=== PATIENT | male | born 1940 | race Caucasian/White ===

== ENCOUNTER 2017-04-04 14:28 | Outpatient (CLI) | payer MEDICARE, BC ==
--- NOTE | 2017-04-05 12:26 | CT Report ---
CT BRAIN WITHOUT CONTRAST: 04/04/2017 CLINICAL INDICATION: Dizziness. TECHNIQUE: Axial CT images of the brain were obtained without intravenous contrast. No previous CT is available for comparison. In accordance with CT protocol optimization, one or more of the following dose reduction techniques w ere utilized for this exam: automated exposure control, adjustment of mA and/or KV based on patient size, or use of iterative reconstructive technique. FINDINGS: The ventricles and sulci demonstrate moderate symmetric enlargement, compatible with atrop hy. Chronic ischemic changes are seen in the periventricular white matter structures. There is no e vidence of acute hemorrhage, mass effect, or midline shift. The basilar cisterns are patent. The vi sualized orbital contents and paranasal sinuses are unremarkable. IMPRESSION: ATROPHY AND CHRONIC ISCHEMIC CHANGES. NO EVIDENCE OF ACUTE HEMORRHAGE OR MASS EFFECT. JOB #: [id number] EXT JOB #:[id number]
--- NOTE | 2017-04-08 08:08 | Ultrasound Report ---
CAROTID DUPLEX: 04/04/2017 CLINICAL INDICATION: Dizziness. TECHNIQUE: Real-time sonographic vascular imaging was performed by the drywall taper helper through the carotid arteries utilizing both color-flow and Doppler spectral analysis. Multiple maintenance representative static images were saved for review. Vessel PSV cm/sec 2D Plaque Estimate % ICA/CCA PSV EDV cm/sec % Stenosis RCCA Prox 89 -- RCCA Dist 69 7 RECA 82 -- RT BULB 35 -- 0.51 9 SHELBY Prox 68 -- 0.99 15 SHELBY Mid 72 -- 1.04 20 SHELBY Dist 44 -- 0.64 14 RVA 62 RVA flow direction: Antegrade. Vessel PSV cm/sec 2D Plaque Estimate % ICA/CCA PSV EDV cm/sec % Stenosis LCCA Prox 91 -- LCCA Dist 60 8 LECA 68 -- LFT BULB 36 -- 0.60 8 LICA Prox 51 -- 0.85 15 LICA Mid 106 -- 1.77 25 LICA Dist 71 -- 1.18 17 LVA 66 LVA flow direction: Antegrade. Velocity criteria are extrapolated from diameter data as defined by the Society of Radiologists in Ultrasound Consensus Conference Radiology 2003; 229; 340-346. Degree of Stenosis % ICA PSV cm/sec Plaque Estimate % ICA/CCA RSV Ratio ICA EDV cm/sec Normal < 125 None < 2.0 < 40 <50 < 125 < 50 < 2.0 < 40 50-69 125 - 130 >/= 50 2.0 - 4.0 40 - 100 >/= 70 but less than near occlusion > 230 >/= 50 > 4.0 > 100 Near occlusion High, low, or undetectable Visible lumen Variable Variable Total occlusion Undetectable No detectable lumen Not applicable Not applicable FINDINGS RIGHT: There is mild plaquing in the right carotid bifurcation, without evidence of a focal hemodynamically significant carotid stenosis. LEFT: There is mild plaquing in the left carotid bifurcation, without evidence of a focal hemodynamically significant carotid stenosis. The vertebral arteries demonstrate antegrade flow bilaterally. IMPRESSION: NO EVIDENCE OF A FOCAL HEMODYNAMICALLY SIGNIFICANT CAROTID STENOSIS. MTDD
== END 2017-04-04 14:29 | disposition home or self-care (01) ==
LOC: DI 14:28
PROVIDERS: ATTEND Family Medicine
DX: R42 Dizziness and giddiness (principal); G31.9 Degenerative disease of nervous system, unspecified; I67.82 Cerebral ischemia
CPT/HCPCS: 70450; 93880

== ENCOUNTER 2017-06-16 15:39 | Emergency (ER) | payer MEDICARE, BC ==
--- NOTE | 2017-06-16 16:12 | ED Physician Documentation ---
History of Present Illness - Stated complaint Stated Complaint: LT FLANK PX/GLF - Chief complaint Chief Complaint: General - History obtained from History obtained from: Patient, Family () - History of Present Illness Timing: Other (Mechanical fall against a oustide step at home a few nights ago hitting left rib on step with persistent left lateral chest pain. Took a percocet (his 's) with help. No other injury, no head or neck injury.) Review of Systems Constitutional: reports: Reviewed and negative Nose: denies: Rhinorrhea / runny nose, Congestion, Foreign Body Cardiac: reports: Chest pain / pressure. denies: Palpitations, Pedal edema, Calf pain Respiratory: denies: Dyspnea, Cough PD PAST MEDICAL HISTORY - Past Medical History Cardiovascular: Hypertension, High cholesterol, Coronary artery disease - Past Surgical History Past Surgical History: Yes General: Cholecystectomy Cardiovascular: Coronary stent - Present Medications Home Medications: Ambulatory Orders Medication Instructions Recorded Confirmed Celecoxib [CeleBREX] 200 mg PO DAILY 08/27/14 06/16/17 Multivitamin [Multivitamins] 1 tab PO DAILY 08/27/14 06/16/17 Rosuvastatin Calcium [Crestor] 10 mg PO DAILY 08/27/14 06/16/17 Testosterone [Androgel] 2.5 mg PO DAILY 08/27/14 06/16/17 Ubidecarenone [Co Q-10] 10 mg PO DAILY 08/27/14 06/16/17 Valsartan [Diovan] 160 mg PO BID 08/27/14 06/16/17 Amlodipine Besylate [Norvasc] 5 mg PO DAILY #30 tablet 03/11/15 06/16/17 Carvedilol 12.5 mg PO DAILY 03/11/15 06/16/17 Isosorbide Mononitrate [Isosorbide 60 mg PO DAILY 03/11/15 06/16/17 Mononitrate ER] Dara 0.5 mg PO DAILY 03/11/15 06/16/17 rOPINIRole [Requip] 0.25 mg PO DAILY 12/18/15 06/16/17 Aspirin EC [Ecotrin] 325 mg PO DAILY 06/16/17 06/16/17 Carvedilol [Coreg] 12.5 mg PO BID 06/16/17 06/16/17 Cholecalciferol [Vitamin D3] 5,000 unit ORAL DAILY 06/16/17 06/16/17 Dutasteride/Tamsulosin HCl 1 each PO DAILY 06/16/17 06/16/17 [Dutasteride-Tamsulosin 0.5-0.4] Nitroglycerin [Nitrostat] 0.4 mg SL Q5MIN PRN 06/16/17 06/16/17 Olmesartan/Hydrochlorothiazide 1 each PO DAILY 06/16/17 06/16/17 [Benicar Hct 20-12.5 mg Tablet] Omega3/Dha/Epa/Fish Oil/Vit D3 1 each PO DAILY 06/16/17 06/16/17 [Fish Oil-Vit D3 Softgel] Oxycodone HCl/Acetaminophen 1 - 2 tab PO Q4H PRN #15 tablet 06/16/17 [Percocet 5-325 mg Tablet] Vitamin B Complex 1 each PO DAILY 06/16/17 06/16/17 oxyCODONE/ACET 5/325 [Percocet 5 1 each PO Q4-6H PRN 06/16/17 06/16/17 mg/325 mg] - Allergies Allergies/Adverse Reactions: Allergies Allergy/AdvReac Type Severity Reaction Status Date / Time No Known Drug Allergies Allergy Verified 06/16/17 15:46 - Social History Does the pt smoke?: No Smoking Status: Never smoker Does the pt drink ETOH?: Yes Does the pt have substance abuse?: No - Immunizations Immunizations are current?: Yes - POLST Patient has POLST: No PD ED PE NORMAL - Vitals Vital signs reviewed: Yes - General General: Alert and oriented X 3, No acute distress - HEENT HEENT: PERRL, EOMI, Pharynx benign - Neck Neck: Supple, no meningeal sign, No bony TTP - Cardiac Cardiac: RRR, No murmur - Respiratory Respiratory: No respiratory distress, Clear bilaterally, Other (Tender to the low ribs, laterally on the left, no overlying ecchymosis or deformity.) - Abdomen Abdomen: Non tender - Derm Derm: Normal color, Warm and dry - Extremities Extremities: No edema, No calf tenderness / cord - Neuro Neuro: Alert and oriented X 3, Normal speech - Psych Psych: Normal mood, Normal affect Results - Vitals Vitals: Vital Signs - 24 hr 09/24/17 09/24/17 15:43 16:43 Temperature 37 C 36.9 C Heart Rate 82 72 Respiratory 16 14 Rate Blood Pressure 182/104 H 174/90 H O2 Saturation 92 92 Oxygen O2 Source Room air - Rads (name of study) L ribs and chest Radiology: EMP read contemporaneously (Acute left rib fracture -seventh rib, small pleural effusions) Departure - Departure Disposition: 01 Home, Self Care Clinical Impression: Rib fracture Qualifiers: Encounter type: initial encounter Rib fracture type: single rib Fracture type: closed Laterality: left Qualified Code(s): S22.32XA - Fracture of one rib, left side, initial encounter for closed fracture Condition: Good Record reviewed to determine appropriate education?: Yes Instructions: ED Fx Rib Prescriptions: Oxycodone HCl/Acetaminophen [Percocet 5-325 mg Tablet] 1 - 2 tab PO Q4H PRN #15 tablet PRN Reason: Pain Comments: Call your doctor to arrange a follow-up appointment, make the next available appointment. In the interim, return anytime if worse or if new symptoms develop. Do not drink or drive while taking narcotic pain medication. Note that many narcotic pain relievers also contain Tylenol/acetaminophen. Please ensure that your total dose of acetaminophen from all sources does not exceed 3 g (3000 mg) per day. You may get constipated while on this medication. Take a stool softener such as Colace twice a day while you are on it. Also add an [id number]-yjz-ynmxrnt laxative such as senna or MiraLAX on any day that you do not have a bowel movement. If you received a narcotic pain medication or sedative while in the emergency department, do not drive for the next 24 hours. Your blood pressure was elevated today on check into the emergency department. This does not mean that you have hypertension, it is a common phenomenon to come to the emergency department and have elevated blood pressure. I recommend that she see your primary care physician within the week to have it rechecked when you are feeling better.
[2017-06-16 16:43] VITALS: BP 174/90
--- NOTE | 2017-06-16 17:02 | XRAY Preliminary Report ---
Exam: XR Ribs w/PA Chest LT IMPRESSION: Bones: Left lateral acute seventh rib fracture, minimally displaced. Lungs: New small bilateral pleural effusions. Mild left base airspace disease could be atelectasis or lung contusion. No pneumothorax. Mediastinum: Cardiomegaly RADIA SITE ID: [id number]
--- NOTE | 2017-06-16 17:04 | XRAY Report ---
EXAM: LEFT RIB RADIOGRAPHY EXAM DATE: 06/16/2017 04:27 PM. CLINICAL HISTORY: Left rib injury. COMPARISON: Chest 08/27/2014. TECHNIQUE: 1 view of the chest and 2 views of the ribs. FINDINGS: Bones: Left lateral acute seventh rib fracture, minimally displaced. Lungs: New small bilateral pleural effusions. Mild left base airspace disease could be atelectasis or lung contusion. No pneumothorax. Mediastinum: Cardiomegaly IMPRESSION: Bones: Left lateral acute seventh rib fracture, minimally displaced. Lungs: New small bilateral pleural effusions. Mild left base airspace disease could be atelectasis or lung contusion. No pneumothorax. Mediastinum: Cardiomegaly RADIA Referring Provider Line: [phone] SITE ID: [id number]
== END 2017-06-16 17:14 | disposition home or self-care (01) ==
LOC: ED 15:39
DX: S22.42XA Multiple fractures of ribs, left side, initial encounter for closed fracture (principal); W01.198A Fall on same level from slipping, tripping and stumbling with subsequent striking against other object, initial encounter; Y92.017 Garden or yard in single-family (private) house as the place of occurrence of the external cause; I10 Essential (primary) hypertension; E78.00 Pure hypercholesterolemia, unspecified; I25.10 Atherosclerotic heart disease of native coronary artery without angina pectoris
CPT/HCPCS: 99283; 99284

== ENCOUNTER 2017-08-19 12:34 | Outpatient (CLI) | payer MEDICARE, BC ==
--- NOTE | 2017-08-19 14:36 | XRAY Report ---
THREE VIEW LEFT SHOULDER: 08/19/2017 CLINICAL INDICATION: Pain. FINDINGS: AP, oblique, and scapular Y views of the left shoulder demonstrate moderate degenerative c hanges. The humeral head appears high riding, suggestive of chronic rotator cuff tear. There is no ev idence of acute fracture or dislocation. No radiopaque foreign body is seen in the soft tissues. IMPRESSION: MODERATE OSTEOARTHRITIS. LIKELY CHRONIC ROTATOR CUFF TEAR. JOB #: [id number] EXT JOB #:
== END 2017-08-19 12:35 | disposition home or self-care (01) ==
LOC: DI 12:34
PROVIDERS: ATTEND Family Medicine
DX: M19.012 Primary osteoarthritis, left shoulder (principal)

== ENCOUNTER 2018-04-30 17:43 | Emergency (ER) | payer MEDICARE, BC ==
--- NOTE | 2018-04-30 17:58 | ED Physician Documentation ---
PD HPI ALTERED MENTAL STATUS - Stated complaint Stated Complaint: CONFUSION - Chief complaint Chief Complaint: Neuro - History obtained from History obtained from: Patient, Family () - History of Present Illness Timing - onset: Other (His has noted that for months to years his memory has been slowly declining but he has gotten lost twice this week while driving. On Saturday he got lost and needed to call the police to help him find his way. Today he went to the doctor's office in [place] but went to [facility] instead and then somehow ended up down here and then went back there and they reverted to sending him here because of the acute confusion. He has no specific complaints.) Review of Systems Ten Systems: 10 systems reviewed and negative Constitutional: denies: Fever, Chills Respiratory: denies: Dyspnea, Cough GI: denies: Abdominal Pain, Nausea, Vomiting Neurologic: denies: Headache, Head injury PD PAST MEDICAL HISTORY - Past Medical History Cardiovascular: Hypertension, High cholesterol, Coronary artery disease - Past Surgical History Past Surgical History: Yes General: Cholecystectomy Cardiovascular: Coronary stent - Present Medications Home Medications: Ambulatory Orders Medication Instructions Recorded Confirmed Celecoxib [CeleBREX] 200 mg PO DAILY 08/27/14 06/16/17 Multivitamin [Multivitamins] 1 tab PO DAILY 08/27/14 06/16/17 Rosuvastatin Calcium [Crestor] 10 mg PO DAILY 08/27/14 06/16/17 Ubidecarenone [Co Q-10] 10 mg PO DAILY 08/27/14 06/16/17 Valsartan [Diovan] 160 mg PO BID 08/27/14 06/16/17 Amlodipine Besylate [Norvasc] 5 mg PO DAILY #30 tablet 03/11/15 06/16/17 Isosorbide Mononitrate [Isosorbide 60 mg PO DAILY 03/11/15 06/16/17 Mononitrate ER] Dara 0.5 mg PO DAILY 03/11/15 06/16/17 rOPINIRole [Requip] 0.25 mg PO DAILY 12/18/15 06/16/17 Aspirin EC [Ecotrin] 325 mg PO DAILY 06/16/17 06/16/17 Carvedilol [Coreg] 12.5 mg PO BID 06/16/17 06/16/17 Cholecalciferol [Vitamin D3] 5,000 unit ORAL DAILY 06/16/17 06/16/17 Dutasteride/Tamsulosin HCl 1 each PO DAILY 06/16/17 06/16/17 [Dutasteride-Tamsulosin 0.5-0.4] Nitroglycerin [Nitrostat] 0.4 mg SL Q5MIN PRN 06/16/17 06/16/17 Olmesartan/Hydrochlorothiazide 1 each PO DAILY 06/16/17 06/16/17 [Benicar Hct 20-12.5 mg Tablet] Omega3/Dha/Epa/Fish Oil/Vit D3 1 each PO DAILY 06/16/17 06/16/17 [Fish Oil-Vit D3 Softgel] Vitamin B Complex 1 each PO DAILY 06/16/17 06/16/17 oxyCODONE/ACET 5/325 [Percocet 5 1 each PO Q4-6H PRN 06/16/17 06/16/17 mg/325 mg] - Allergies Allergies/Adverse Reactions: Allergies Allergy/AdvReac Type Severity Reaction Status Date / Time No Known Drug Allergies Allergy Verified 04/30/18 20:11 - Social History Does the pt smoke?: No Smoking Status: Never smoker Does the pt drink ETOH?: Yes Does the pt have substance abuse?: No - Immunizations Immunizations are current?: Yes - POLST Patient has POLST: No PD ED PE NORMAL - Vitals Vital signs reviewed: Yes - General General: No acute distress, Well developed/nourished, Other (He is alert and oriented to person and place but says it is 1978 but gets the month right. He remembers what he had for breakfast, "juice.") - HEENT HEENT: PERRL, EOMI - Neck Neck: Supple, no meningeal sign, No bony TTP - Cardiac Cardiac: RRR (With frequent extrasystoles), No murmur - Respiratory Respiratory: No respiratory distress, Clear bilaterally - Abdomen Abdomen: Normal bowel sounds, Soft, Non tender - Back Back: No CVA TTP, No spinal TTP - Derm Derm: Normal color, Warm and dry - Extremities Extremities: No deformity - Neuro Neuro: taffy puller 2-12 intact Eye Opening: Spontaneous Motor: Obeys Commands Verbal: Confused GCS Score: 14 - Psych Psych: Normal mood, Normal affect Results - Vitals Vitals: Vital Signs - 24 hr 04/30/18 04/30/1818 17:53 18:59 19:25 Temperature 37.0 C Heart Rate 61 71 70 Respiratory 22 16 15 Rate Blood Pressure 183/110 H 163/78 H 164/89 H O2 Saturation 97 93 94 04/30/18 20:08 Temperature Heart Rate 66 Respiratory 20 Rate Blood Pressure 185/89 H O2 Saturation 93 Oxygen O2 Source Room air - EKG (time done) 1804 Rate: Rate (enter#) (65) Rhythm: NSR [place]: Normal Intervals: LBBB (Incomplete) QRS: LVH Computer interpretation: Agree with computer - Labs Labs: Laboratory Tests 04/30/18 04/30/18 04/30/18 18:05 18:05 18:05 WBC 10.8 RBC 5.95 Hgb 17.8 Hct 52.5 H MCV 88.3 MCH 30.0 MCHC 33.9 RDW 13.8 Plt Count 167 MPV 8.9 Neut # (Auto) 6.5 Lymph # (Auto) 3.2 [place] # (Auto) 0.9 Eos # (Auto) 0.1 Baso # (Auto) 0.1 Absolute Nucleated RBC 0.01 Nucleated RBC % 0.1 Sodium 138 Potassium 3.7 Chloride 100 L Carbon Dioxide 27 Anion Gap 11.0 BUN 17 Creatinine 0.9 Estimated GFR (MDRD) 82 L Glucose 112 H Calcium 9.0 Magnesium 2.0 Total Bilirubin 1.2 H AST 27 ALT 14 Alkaline Phosphatase 65 Troponin I 0.59 H* Total Protein 6.4 L Albumin 3.9 Globulin 2.5 Albumin/Globulin Ratio 1.6 Lipase 42 TSH Urine Color Urine Clarity Urine pH Ur Specific [place] Urine Protein Urine Glucose (UA) Urine Ketones Urine Occult Blood Urine Nitrite Urine Bilirubin Urine Urobilinogen Ur Leukocyte Esterase Ur Microscopic Review Urine Culture Comments Salicylates < 6.0 Urine Opiates Screen Ur Oxycodone Screen Urine Methadone Screen Ur Propoxyphene Screen Acetaminophen < 10 L Ur Barbiturates Screen Ur Tricyclics Screen Ur Phencyclidine Scrn Ur Amphetamine Screen U Methamphetamines Scrn U Benzodiazepines Scrn Urine Cocaine Screen U Cannabinoids Screen Ethyl Alcohol < 5.0 04/30/18 04/30/18 18:05 19:27 WBC RBC Hgb Hct MCV MCH MCHC RDW Plt Count MPV Neut # (Auto) Lymph # (Auto) [place] # (Auto) Eos # (Auto) Baso # (Auto) Absolute Nucleated RBC Nucleated RBC % Sodium Potassium Chloride Carbon Dioxide Anion Gap BUN Creatinine Estimated GFR (MDRD) Glucose Calcium Magnesium Total Bilirubin AST ALT Alkaline Phosphatase Troponin I Total Protein Albumin Globulin Albumin/Globulin Ratio Lipase TSH 1.72 Urine Color DARK YELLOW Urine Clarity CLEAR Urine pH 5.5 Ur Specific [place] 1.025 Urine Protein TRACE Urine Glucose (UA) NEGATIVE Urine Ketones TRACE Urine Occult Blood NEGATIVE Urine Nitrite NEGATIVE Urine Bilirubin NEGATIVE Urine Urobilinogen 0.2 (NORMAL) Ur Leukocyte Esterase NEGATIVE Ur Microscopic Review NOT INDICATED Urine Culture Comments NOT INDICATED Salicylates Urine Opiates Screen NEGATIVE Ur Oxycodone Screen NEGATIVE Urine Methadone Screen NEGATIVE Ur Propoxyphene Screen NEGATIVE Acetaminophen Ur Barbiturates Screen NEGATIVE Ur Tricyclics Screen NEGATIVE Ur Phencyclidine Scrn NEGATIVE Ur Amphetamine Screen NEGATIVE U Methamphetamines Scrn NEGATIVE U Benzodiazepines Scrn NEGATIVE Urine Cocaine Screen NEGATIVE U Cannabinoids Screen NEGATIVE Ethyl Alcohol PD MEDICAL DECISION MAKING - ED course ED course: The subacute pattern makes it seem more like an exacerbation of chronic worsening dementia than anything else. He has no symptoms attributable to a coronary emergency, specifically no chest pain, trouble breathing, upper back pain, sweats. That said his troponin is Surprisingly elevated at 0.59 in the setting of a new incomplete left bundle branch block since 2014, the last EKG I have on the chart. I spoke with the on- call fabrication specialist Dr. Justice for his fabrication specialist, Dr. Drummond who did recommend transfer to a cardiac capable facility. Unfortunately [facility] was full. We also called [facility], they were full. Then we called [facility]. In the meantime he was started on heparin, Plavix, 300 mg, Nitropaste, and aspirin. Accepted by Dr Geronimo Hospitalist at [facility] at 8:52 PM - Sepsis Event Vital Signs: Vital Signs - 24 hr 04/30/18 04/30/18 04/30/18 17:53 18:59 19:25 Temperature 37.0 C Heart Rate 61 71 70 Respiratory 22 16 15 Rate Blood Pressure 183/110 H 163/78 H 164/89 H O2 Saturation 97 93 94 04/30/18 20:08 Temperature Heart Rate 66 Respiratory 20 Rate Blood Pressure 185/89 H O2 Saturation 93 Oxygen O2 Source Room air Departure - Departure Disposition: 02 Transfer Acute Care Hosp Clinical Impression: Confusion, NSTEMI (non-ST elevated myocardial infarction) Condition: Serious
[2018-04-30 18:11] LABS: BASOPHILS # (AUTO) 0.1 10^3/uL (0.0-0.1); BASOPHILS % (AUTO) 0.8 %; EOSINOPHILS # (AUTO) 0.1 10^3/uL (0.0-0.7); HGB - HEMOGLOBIN 17.8 g/dL (14.0-18.0); LYMPHOCYTES # (AUTO) 3.2 10^3/uL (1.5-3.5); LYMPHOCYTES % (AUTO) 29.5 %; MEAN CORPUSCULAR HGB CONC 33.9 g/dL (32.0-36.0); MEAN CORPUSCULAR VOLUME 88.3 fL (80.0-94.0); MEAN PLATELET VOLUME 8.9 fL (7.4-11.4); MONOCYTES # (AUTO) 0.9 10^3/uL (0.0-1.0); NEUTROPHILS # (AUTO) 6.5 10^3/uL (1.5-6.6); NEUTROPHILS % (AUTO) 60.7 %; PLT - PLATELET COUNT 167 10^3/uL (130-450); RED BLOOD COUNT 5.95 10^6/uL (4.70-6.10); RED CELL DISTRIBUTION WIDTH 13.8 % (12.0-15.0); WHITE BLOOD COUNT 10.8 x10^3/uL (4.8-10.8)
[2018-04-30 18:32] LABS: ACETAMINOPHEN < 10 ug/mL (10-30); ALBUMIN 3.9 g/dL (3.2-5.5); ALBUMIN/GLOBULIN RATIO 1.6 (1.0-2.2); ALKALINE PHOSPHATASE 65 IU/L (42-121); ALT ALANINE AMINOTRANSFERASE 14 IU/L (10-60); AST ASPARTATE AMINOTRANSFERASE 27 IU/L (10-42); BILIRUBIN,TOTAL 1.2 mg/dL (0.2-1.0); BUN - BLOOD UREA NITROGEN 17 mg/dL (6-20); CARBON DIOXIDE - CO2 27 mmol/L (21-32); CHLORIDE 100 mmol/L (101-111); CREATININE 0.9 mg/dL (0.6-1.2); GFR - MDRD 82 (>89); GLUCOSE 112 mg/dL (70-100); LIPASE 42 U/L (22-51); SALICYLATE < 6.0 mg/dL; SODIUM 138 mmol/L (135-145); TOTAL PROTEIN 6.4 g/dL (6.7-8.2)
--- NOTE | 2018-04-30 18:58 | CT Report ---
Procedure Date: 04/30/2018 Accession Number: [id number] / [id number] Procedure: CT - Head W/O CPT Code: FULL RESULT: EXAM: CT HEAD EXAM DATE: 04/30/2018 06:46 PM. CLINICAL HISTORY: Confusion. COMPARISON: HEAD W/O 04/04/2017. TECHNIQUE: Noncontrast axial imaging was performed through the head. In accordance with CT protocol optimization, one or more of the following dose reduction techniques were utilized for this exam: automated exposure control, adjustment of mA and/or KV based on patient size, or use of iterative reconstructive technique. FINDINGS HEAD CT: Parenchyma: No intraparenchymal hemorrhage. No evidence of mass, midline shift, or CT findings of acute infarction. Periventricular white matter hypodensity may represent small vessel ischemic disease. Extraaxial Spaces: There is mild generalized volume loss. No subdural or epidural collections identified. Ventricles: Normal in size and position. Sinuses: Paranasal sinuses and mastoid air cells demonstrate no evidence of significant opacification. Bones: No evidence of fracture or calvarial defect. Other: None. IMPRESSION: 1. No acute intracranial CT abnormality. 2. There are senescent changes. RADIA RADIA
[2018-04-30 19:29] LABS: MUDS CUTOFF CONCENTRATIONS CUTOFF CONC BELOW:
[2018-04-30 19:32] LABS: GLUCOSE, URINE (UA) NEGATIVE (NEGATIVE); KETONES,URINE (UA) TRACE mg/dL (NEGATIVE); LEUKOCYTE ESTERASE, URINE NEGATIVE (NEGATIVE); NITRITE,URINE NEGATIVE (NEGATIVE); OCCULT BLOOD,URINE NEGATIVE (NEGATIVE); PH,URINE 5.5 PH (5.0-7.5); PROTEIN,URINE TRACE mg/dL (NEGATIVE); UROBILINOGEN,URINE 0.2 (NORMAL) E.U./dL (NORMAL)
[2018-04-30] MEDS ORDERED: ASPIRIN CHEW 81 MG TABLET PO STA (19:33)
[2018-04-30] MEDS ORDERED: HEPARIN 5,000 UNIT/ML VIAL IVP STA (19:33)
[2018-04-30] MEDS ORDERED: HEPARIN 25000UNITS/500ML (D5W) 25,000 UNIT/500 ML BAG IV STA (19:33)
[2018-04-30] MEDS ORDERED: CLOPIDOGREL 300 MG TABLET PO STA (19:33)
[2018-04-30] MEDS ORDERED: NITROGLYCERIN 2% PASTE TOP STA (19:33)
[2018-04-30 19:44] LABS: BILIRUBIN,URINE NEGATIVE (NEGATIVE); CLARITY,URINE CLEAR (CLEAR); ICTOTEST,URINE NEGATIVE
[2018-04-30 19:46] LABS: AMPHETAMINE SCREEN,URINE NEGATIVE (NEGATIVE); BENZODIAZEPINES SCREEN, URINE NEGATIVE (NEGATIVE); COCAINE SCREEN URINE NEGATIVE (NEGATIVE); METHADONE SCREEN, URINE NEGATIVE (NEGATIVE); METHAMPHETAMINES SCREEN, URINE NEGATIVE (NEGATIVE); OPIATE SCREEN, URINE NEGATIVE (NEGATIVE); OXYCODONE SCREEN, URINE NEGATIVE (NEGATIVE); PROPOXYPHENE SCREEN, URINE NEGATIVE (NEGATIVE); TRICYCLIC ANTIDEPRESSANT,URINE NEGATIVE (NEGATIVE)
[2018-04-30 20:09] VITALS: BP 185/89
[2018-04-30] MEDS ORDERED: rOPINIRole 0.25 MG TABLET PO STA (20:20)
== END 2018-04-30 21:22 | disposition short-term general hospital (02) ==
LOC: ED 17:43
DX: R41.0 Disorientation, unspecified (principal); I21.4 Non-ST elevation (NSTEMI) myocardial infarction; I44.7 Left bundle-branch block, unspecified; I10 Essential (primary) hypertension; E78.00 Pure hypercholesterolemia, unspecified; Z95.5 Presence of coronary angioplasty implant and graft
CPT/HCPCS: 36415; 70450; 80053; 81003; 83690; 83735; 84443; 84484; 85025; 93005; 96365; 96375; 99284; 99285; A9270; 80306; 80307; 80320; 80329; 81001; 87086

== ENCOUNTER 2018-04-30 21:15 | Outpatient (CLI) | payer MEDICARE, BC | END 2018-04-30 21:16 | disposition short-term general hospital (02) | LOC: EMS 21:15 | PROVIDERS: ATTEND Surgery | DX: I21.4 Non-ST elevation (NSTEMI) myocardial infarction (principal) | CPT/HCPCS: A0170; A0425; A0426 ==

== ENCOUNTER 2018-06-27 12:33 | Outpatient (CLI) | payer MEDICARE, BC ==
--- NOTE | 2018-06-27 16:10 | XRAY Report ---
Reason: PNEUMONIA, UNSPECIFIED ORGANISM Procedure Date: 06/27/2018 Accession Number: [id number] / [id number] Procedure: XR - Chest 2 View X-Ray CPT Code: 25024 FULL RESULT: EXAM: CHEST RADIOGRAPHY EXAM DATE: 06/27/2018 12:46 PM. CLINICAL HISTORY: Pneumonia, unspecified organism. COMPARISON: Ribs w/PA chest LT 06/16/2017 4:12 PM. TECHNIQUE: 2 views. FINDINGS: Lungs/Pleura: No focal opacities evident. No pleural effusion. No pneumothorax. Normal volumes. Mediastinum: Heart and mediastinal contours are unremarkable. Other: None. IMPRESSION: No acute cardiopulmonary abnormality. RADIA
== END 2018-06-27 12:34 | disposition home or self-care (01) ==
LOC: DI 12:33
PROVIDERS: ATTEND Family Medicine
DX: J18.9 Pneumonia, unspecified organism (principal)
CPT/HCPCS: 71046

== ENCOUNTER 2018-08-11 12:02 | Emergency (ER) | payer MEDICARE, BC ==
--- NOTE | 2018-08-11 12:40 | ED Physician Documentation ---
PD HPI LOWER EXT INJURY - Stated complaint Stated Complaint: SPIDER BITE - Chief complaint Chief Complaint: Ext Problem - History obtained from History obtained from: Patient - History of Present Illness PD HPI LOW EXT INJURY LOCATION: Other (For the last 4 days without specific injury he has had redness and swelling of the left leg. He has had some chills and nausea with it. He is not diabetic.) Review of Systems Ten Systems: 10 systems reviewed and negative Constitutional: reports: Chills. denies: Fever Cardiac: denies: Chest pain / pressure, Palpitations Respiratory: denies: Dyspnea, Cough GI: reports: Nausea. denies: Abdominal Pain, Vomiting PD PAST MEDICAL HISTORY - Past Medical History Cardiovascular: Hypertension, High cholesterol, Coronary artery disease - Past Surgical History Past Surgical History: Yes General: Cholecystectomy Cardiovascular: Coronary stent - Present Medications Home Medications: Ambulatory Orders Medication Instructions Recorded Confirmed Celecoxib [CeleBREX] 200 mg PO DAILY 08/27/14 06/16/17 Multivitamin [Multivitamins] 1 tab PO DAILY 08/27/14 06/16/17 Rosuvastatin Calcium [Crestor] 10 mg PO DAILY 08/27/14 06/16/17 Ubidecarenone [Co Q-10] 10 mg PO DAILY 08/27/14 06/16/17 Valsartan [Diovan] 160 mg PO BID 08/27/14 06/16/17 Amlodipine Besylate [Norvasc] 5 mg PO DAILY #30 tablet 03/11/15 06/16/17 Isosorbide Mononitrate [Isosorbide 60 mg PO DAILY 03/11/15 06/16/17 Mononitrate ER] Dara 0.5 mg PO DAILY 03/11/15 06/16/17 rOPINIRole [Requip] 0.25 mg PO DAILY 12/18/15 06/16/17 Aspirin EC [Ecotrin] 325 mg PO DAILY 06/16/17 06/16/17 Carvedilol [Coreg] 12.5 mg PO BID 06/16/17 06/16/17 Cholecalciferol [Vitamin D3] 5,000 unit ORAL DAILY 06/16/17 06/16/17 Dutasteride/Tamsulosin HCl 1 each PO DAILY 06/16/17 06/16/17 [Dutasteride-Tamsulosin 0.5-0.4] Nitroglycerin [Nitrostat] 0.4 mg SL Q5MIN PRN 06/16/17 06/16/17 Olmesartan/Hydrochlorothiazide 1 each PO DAILY 06/16/17 06/16/17 [Benicar Hct 20-12.5 mg Tablet] Omega3/Dha/Epa/Fish Oil/Vit D3 1 each PO DAILY 06/16/17 06/16/17 [Fish Oil-Vit D3 Softgel] Vitamin B Complex 1 each PO DAILY 06/16/17 06/16/17 Cephalexin [Keflex] 500 mg PO Q6H #28 capsule 08/11/18 - Allergies Allergies/Adverse Reactions: Allergies Allergy/AdvReac Type Severity Reaction Status Date / Time No Known Drug Allergies Allergy Verified 08/11/18 12:15 - Social History Does the pt smoke?: No Smoking Status: Never smoker Does the pt drink ETOH?: Yes Does the pt have substance abuse?: No - Family History Family history: reports: Non contributory - Immunizations Immunizations are current?: Yes - POLST Patient has POLST: No PD ED PE NORMAL - Vitals Vital signs reviewed: Yes - General General: Alert and oriented X 3, No acute distress - Neck Neck: Supple, no meningeal sign, No bony TTP - Cardiac Cardiac: RRR (But frequent ectopy, PVCs on the monitor), No murmur - Respiratory Respiratory: No respiratory distress, Clear bilaterally - Abdomen Abdomen: Normal bowel sounds, Soft, Non tender - Extremities Extremities: Other (He has cellulitis of the left foot and ankle extending to almost the knee. Some tenderness. Good range of motion.) - Neuro Neuro: Alert and oriented X 3, Normal speech - Psych Psych: Normal mood, Normal affect Results - Vitals Vitals: Vital Signs - 24 hr 08/11/18 12:11 Temperature 36.8 C Heart Rate 84 Respiratory 25 H Rate Blood Pressure 165/77 H O2 Saturation 97 Oxygen O2 Source Room air - Labs Labs: Laboratory Tests 08/11/18 08/11/18 08/11/18 13:20 13:20 13:20 WBC 7.2 RBC 5.57 Hgb 16.8 Hct 48.7 MCV 87.5 MCH 30.3 MCHC 34.6 RDW 14.0 Plt Count 179 MPV 8.7 Neut # (Auto) 4.2 Lymph # (Auto) 2.2 [place] # (Auto) 0.6 Eos # (Auto) 0.1 Baso # (Auto) 0.1 Absolute Nucleated RBC 0.00 Nucleated RBC % 0.0 Sodium 135 Potassium 3.7 Chloride 104 Carbon Dioxide 21 Anion Gap 10.0 BUN 12 Creatinine 0.8 Estimated GFR (MDRD) 93 Glucose 162 H Lactic Acid 1.9 Calcium 8.4 L Total Bilirubin 0.8 AST 21 ALT < 10 L Alkaline Phosphatase 65 Total Protein 6.2 L Albumin 3.1 L Globulin 3.1 Albumin/Globulin Ratio 1.0 Lipase 45 PD MEDICAL DECISION MAKING - ED course ED course: This is a 78-year-old gentleman who has what appears to be cellulitis of the left lower extremity. He is nontoxic. DVT scan was done and negative. His lab work is reassuring. He is given Ancef IV in the department here. Departure - Departure Disposition: 01 Home, Self Care Clinical Impression: Left leg cellulitis Condition: Good Record reviewed to determine appropriate education?: Yes Instructions: Cellulitis Dc Prescriptions: Cephalexin [Keflex] 500 mg PO Q6H #28 capsule Comments: Call your doctor to arrange a follow-up appointment, make the next available appointment. In the interim, return anytime if worse or if new symptoms develop. Your blood pressure was elevated today on check into the emergency department. This does not mean that you have hypertension, it is a common phenomenon to come to the emergency department and have elevated blood pressure. I recommend that you see your primary care physician within the week to have it rechecked when you are feeling better.
[2018-08-11 13:31] LABS: BASOPHILS # (AUTO) 0.1 10^3/uL (0.0-0.1); BASOPHILS % (AUTO) 1.2 %; EOSINOPHILS # (AUTO) 0.1 10^3/uL (0.0-0.7); EOSINOPHILS % (AUTO) 1.4 %; HGB - HEMOGLOBIN 16.8 g/dL (14.0-18.0); LYMPHOCYTES # (AUTO) 2.2 10^3/uL (1.5-3.5); LYMPHOCYTES % (AUTO) 30.6 %; MEAN CORPUSCULAR HEMOGLOBIN 30.3 pg (27.0-31.0); MEAN CORPUSCULAR HGB CONC 34.6 g/dL (32.0-36.0); MEAN CORPUSCULAR VOLUME 87.5 fL (80.0-94.0); MEAN PLATELET VOLUME 8.7 fL (7.4-11.4); MONOCYTES # (AUTO) 0.6 10^3/uL (0.0-1.0); MONOCYTES % (AUTO) 8.1 %; NEUTROPHILS # (AUTO) 4.2 10^3/uL (1.5-6.6); NEUTROPHILS % (AUTO) 58.7 %; PLT - PLATELET COUNT 179 10^3/uL (130-450); RED BLOOD COUNT 5.57 10^6/uL (4.70-6.10); WHITE BLOOD COUNT 7.2 x10^3/uL (4.8-10.8)
[2018-08-11 13:47] LABS: ALBUMIN 3.1 g/dL (3.2-5.5); ALKALINE PHOSPHATASE 65 IU/L (42-121); ALT ALANINE AMINOTRANSFERASE < 10 IU/L (10-60); AST ASPARTATE AMINOTRANSFERASE 21 IU/L (10-42); BILIRUBIN,TOTAL 0.8 mg/dL (0.2-1.0); BUN - BLOOD UREA NITROGEN 12 mg/dL (6-20); CALCIUM 8.4 mg/dL (8.5-10.3); CARBON DIOXIDE - CO2 21 mmol/L (21-32); CHLORIDE 104 mmol/L (101-111); CREATININE 0.8 mg/dL (0.6-1.2); GFR - MDRD 93 (>89); GLUCOSE 162 mg/dL (70-100); LIPASE 45 U/L (22-51); SODIUM 135 mmol/L (135-145); TOTAL PROTEIN 6.2 g/dL (6.7-8.2)
--- NOTE | 2018-08-11 15:17 | Ultrasound Report ---
Reason: leg swelling Procedure Date: 08/11/2018 Accession Number: [id number] / [id number] Procedure: US - Duplex Ext Veins Left CPT Code: FULL RESULT: EXAM: LEFT LOWER EXTREMITY VENOUS ULTRASOUND. EXAM DATE: 08/11/2018 03:00 PM. CLINICAL HISTORY: Leg swelling. COMPARISON: None. TECHNIQUE: Real-time sonographic vascular imaging was performed by the cartridge belt puncher through the lower extremity utilizing both color-flow and Doppler spectral analysis. Multiple commissary representative static images were saved for review. FINDINGS: Common Femoral Vein (CFV): Normal. CFV-GSV Junction: Normal. Profunda Femoral Vein (PFV): Normal. Femoral Vein (FV) Prox: Normal. Femoral Vein (FV) Mid: Normal. Femoral Vein (FV) Dist: Normal. Popliteal Vein: Normal. Posterior Tibial Veins: Normal. Peroneal Veins: Normal. Contralateral Side CFV: Normal. Other: None. IMPRESSION: No evidence for deep venous thrombosis. RADIA
[2018-08-11] MEDS: ceFAZolin 2 GM in SODIUM CHLORIDE 0.9% MINIBAG 100 ML IV STA (15:52)
[2018-08-11 17:10] VITALS: BP 169/95
== END 2018-08-11 16:40 | disposition home or self-care (01) ==
LOC: ED 12:02
DX: L03.116 Cellulitis of left lower limb (principal); I10 Essential (primary) hypertension; E78.00 Pure hypercholesterolemia, unspecified; I25.10 Atherosclerotic heart disease of native coronary artery without angina pectoris; Z95.5 Presence of coronary angioplasty implant and graft
CPT/HCPCS: 36415; 80053; 83605; 83690; 85025; 87040; 93005; 96365; 99283

== ENCOUNTER 2019-04-29 14:02 | Outpatient (CLI) | payer MEDICARE, BC ==
[2019-04-29 14:29] LABS: BASOPHILS # (AUTO) 0.1 10^3/uL (0.0-0.1); EOSINOPHILS # (AUTO) 0.1 10^3/uL (0.0-0.7); EOSINOPHILS % (AUTO) 1.5 %; HGB - HEMOGLOBIN 18.5 g/dL (14.0-18.0); LYMPHOCYTES # (AUTO) 2.7 10^3/uL (1.5-3.5); LYMPHOCYTES % (AUTO) 33.6 %; MEAN CORPUSCULAR HEMOGLOBIN 30.2 pg (27.0-31.0); MEAN CORPUSCULAR HGB CONC 33.2 g/dL (32.0-36.0); MEAN PLATELET VOLUME 10.4 fL (7.4-11.4); MONOCYTES # (AUTO) 0.6 10^3/uL (0.0-1.0); MONOCYTES % (AUTO) 7.5 %; NEUTROPHILS # (AUTO) 4.4 10^3/uL (1.5-6.6); NEUTROPHILS % (AUTO) 55.9 %; PLT - PLATELET COUNT 171 10^3/uL (130-450); RED BLOOD COUNT 6.12 10^6/uL (4.70-6.10); RED CELL DISTRIBUTION WIDTH 13.2 % (12.0-15.0); WHITE BLOOD COUNT 7.9 x10^3/uL (4.8-10.8)
[2019-04-29 14:46] LABS: CALCIUM 9.1 mg/dL (8.5-10.3); CREATININE 0.8 mg/dL (0.6-1.2)
== END 2019-04-29 14:03 | disposition home or self-care (01) ==
LOC: LAB 14:02
PROVIDERS: ATTEND Registered Nurse
DX: I11.0 Hypertensive heart disease with heart failure (principal); I50.9 Heart failure, unspecified; R22.9 Localized swelling, mass and lump, unspecified
CPT/HCPCS: 36415; 80048; 85025

== ENCOUNTER 2019-05-01 09:46 | Day surgery (SDC) | payer MEDICARE, BC ==
[2019-05-01] MEDS ORDERED: ONDANSETRON 4 MG/2 ML VIAL IVP ONE ×2 (09:47→11:55)
[2019-05-01] MEDS ORDERED: MIDAZOLAM 2 MG/2 ML VIAL IVP ONE ×2 (09:47→11:55)
[2019-05-01] MEDS ORDERED: DEXAMETHASONE 4 MG/ML VIAL IVP ONE ×2 (09:47→11:55)
[2019-05-01] MEDS ORDERED: ePHEDrine 50 MG/ML VIAL IVP ONE ×2 (09:47→11:55)
[2019-05-01] MEDS ORDERED: fentaNYL 100 MCG/2 ML VIAL IVP ONE ×2 (09:47→11:55)
[2019-05-01] MEDS ORDERED: LACTATED RINGERS 1,000 ML IV ONE ×2 (09:58→12:25)
[2019-05-01] MEDS ORDERED: CEFAZOLIN SODIUM IN 0.9 % NACL 2 GM/100 ML BAG IV ONE (10:05)
[2019-05-01] MEDS ORDERED: BUPIVACAINE 0.5% PF 10 ML VIAL ONE (10:32)
--- NOTE | 2019-05-01 10:38 | ANESTHESIA ---
Pre-Anesthesia VS, & Labs - Diagnosis right axillary mass - Procedure excision of right axillary mass Vital Signs: Temp Pulse Resp BP Pulse Ox 36.7 C 62 18 165/100 H 96 05/01/19 10:19 05/01/19 10:19 05/01/19 10:19 05/01/19 10:19 05/01/19 10:19 Height 5 ft 7 in Weight (kg) 110.22 kg Body Mass Index 38.0 - NPO >8 hours Home Medications and Allergies Home Medications: Ambulatory Orders Aspirin 81 mg PO DAILY 04/29/19 Furosemide [Lasix] 40 mg PO DAILY 04/29/19 Losartan Potassium 25 mg PO DAILY 04/29/19 Ticagrelor [Brilinta] 90 mg PO BID 04/29/19 Celecoxib [CeleBREX] 200 mg PO DAILY PRN 08/27/14 Multivitamin [Multivitamins] 1 tab PO DAILY 08/27/14 Rosuvastatin Calcium [Crestor] 10 mg PO DAILY 08/27/14 Isosorbide Mononitrate [Isosorbide Mononitrate ER] 120 mg PO BID 03/11/15 rOPINIRole [Requip] 0.25 mg PO TID PRN 12/18/15 Carvedilol [Coreg] 25 mg PO BID 06/16/17 Cholecalciferol [Vitamin D3] 5,000 unit ORAL DAILY 06/16/17 Dutasteride/Tamsulosin HCl [Dutasteride-Tamsulosin 0.5-0.4] 1 each PO DAILY 06/16/17 Nitroglycerin [Nitrostat] 0.4 mg SL Q5MIN PRN 06/16/17 Vitamin B Complex 1 each PO DAILY 06/16/17 Aspirin 81 mg PO DAILY 04/29/19 Furosemide [Lasix] 40 mg PO DAILY 04/29/19 Losartan Potassium 25 mg PO DAILY 04/29/19 Ticagrelor [Brilinta] 90 mg PO BID 04/29/19 Allergies/Adverse Reactions: Allergies Allergy/AdvReac Type Severity Reaction Status Date / Time atorvastatin [From Lipitor] Allergy Unknown Verified 04/29/19 14:46 hydrocodone Allergy Unknown Verified 04/29/19 14:46 testosterone [From Androderm] Allergy Unknown Verified 04/29/19 14:46 Anes History & Medical History - Anesthetic History Anesthesia Complications: reports: No previous complications Family history of Anesthesia Complications: Denies Family history of Malignant Hyperthermia: Denies - Medical History Cardiovascular: reports: Congestive heart failure, Hypertension, High cholesterol, Coronary artery disease, Angina, Murmur, Arrhythmia Pulmonary: reports: Shortness of breath Gastrointestinal: reports: Hemorrhoids Urinary: reports: Benign prostate hypertrophy, Incontinence, Nocturia Neuro: reports: None Musculoskeletal: reports: Osteoarthritis, Chronic back pain Endocrine/Autoimmune: reports: None Blood Disorders: reports: None Skin: reports: None Smoking Status: Never smoker - Surgical History General: Cholecystectomy, Colonoscopy Cardiothoracic: CABG, Coronary stent Exam General: Alert, Oriented x3, Cooperative, No acute distress Dental: WNL Mouth Openin Fingerbreadth Neck Mobility: Normal Mallampati classification: III Thyromental Distance: greater than 6 cm Respiratory: Lungs clear Cardiovascular: Normal S1, Normal S2 Plan Anesthesia Type: General Consent for Procedure(s) Verified and Reviewed: Yes Code Status: Attempt Resuscitation ASA classification: 3-Severe systemic disease Is this case an emergency?: No
[2019-05-01] MEDS ORDERED: BUPIVACAINE 0.5% PF 30 ML VIAL INFIL ONE (11:51)
[2019-05-01] MEDS ORDERED: PROPOFOL 200 MG/20 ML VIAL IVP ONE (11:55)
[2019-05-01] MEDS ORDERED: LIDOCAINE-MPF 2% 5 ML VIAL IM ONE (11:55)
[2019-05-01] MEDS ORDERED: ONDANSETRON 4 MG/2 ML VIAL IVP PRN (12:31)
[2019-05-01] MEDS ORDERED: HYDROmorphone 0.5 MG/0.5 ML SYRINGE IVP PRN (12:31)
[2019-05-01] MEDS ORDERED: oxyCODONE 5 MG TABLET PO PRN (12:31)
--- NOTE | 2019-05-01 12:40 | OPERATIVE REPORT ---
Operative Report - General Planned Procedure: Excision large right axillary mass (suspect lipoma) Pre-Op Diagnosis: Large right axillary mass (suspect lipoma) Procedure Performed: Excision large right axillary masslipoma Post Op Diagnosis: Same - Procedure Note Primary Surgeon: Neftali Reyes MD Anesthesia Provider: Jamir Mei CRNA Anesthesia Technique: General LMA, Local (30 mL of half percent Marcaine) IV Fluids (mL): 600 Estimated Blood Loss (mL): 15 Drain/Tube Type: Other (None.) Complications: None. - Other Other Information/Narrative: OPERATIVE DESCRIPTION/REPORT: After verbal and written informed consent was obtained detailing the risks of infection, bleeding requiring transfusion with its risks, nerve injury, and , and after I met with the patient confirming the surgery and the site of the surgery and after initialing the site of the surgery with a surgical marker, the patient was brought to the operative suite and placed supine on the operating table. Great care was taken to avoid pressure points to prevent pressure necrosis or nerve injury. Monitoring devices were applied along with TEDs and pneumatic compressive stockings (to prevent DVT). The patient received preoperative antibiotics for surgical prophylaxis. Jamir Mei CRNA sedated and anesthetized the patient for the entire procedure. The patient was prepped and draped in the usual sterile manner. With the patient draped my initials were clearly visible. A "time in" then confirmed that the patient was identified with 3 identifiers (name, date and medical record number), the history and physical was in the chart, the signed consent confirming the procedure was in the chart, the patient was in the correct position, the aforementioned prophylactic measures were in place or given, we had the correct personnel and equipment to complete the procedure and that anesthesia, surgery and nursing were given an opportunity to express any concerns. With the agreement of everyone in the room, we proceeded with the operation. A transverse elliptical incision 8 cm in length (in order to have a better cosmetic result due to the size of the mass) was made at the inferior axillary hairline. Dissection down to the mass was completed using a combination of Bovie electrocautery and Metzenbaum scissors. The mass was very large and lipomatous and this was excised by staying on the edge of the lipoma and applying either Bovie electrocauter or traction and counter-traction. Small feeding blood vessels were cauterized using Bovie electrocautery. With the mass excised, hemostasis was obtained with Bovie electrocautery. Please note that the skin and the mass were sent to pathology. The subcutaneous tissues were approximated with interrupted simple 3-0 Vicryl sutures. The skin incision was approximated using an interrupted alternating mattress and simple 3-0 nylon sutures. The incision was injected with 30 cc % marcaine. The prep was washed off and Dermabond was placed on the incision. At this point a time out was performed that confirmed that all the counts were correct, the procedure that was performed, the blood loss, the urine output, the IV fluids administered, and the patients condition. Dressings were applied. Having tolerated the procedure well, the patient was subsequently extubated and taken to recovery room in good and stable condition. Sensitive Object disclaimer: This document was created in part using voice recognition technology. Because of the inherent limitations of the system ([employer]'s Sensitive Object Dictate user manual states that the licensee understands that speech recognition is a statistical process and that recognition errors are inherent in the process), occasional same sounding word substitutions and grammatical errors do occur and persist despite proofreading. Please read this document for context.
[2019-05-01 14:17] VITALS: BP 131/65
== END 2019-05-01 09:47 | disposition home or self-care (01) ==
LOC: SDS 09:46
PROVIDERS: ATTEND Surgery
PROC: 0JBD0ZZ Excision of Right Upper Arm Subcutaneous Tissue and Fascia, Open Approach (ICD-10-PCS; principal; 2019-05-01 11:45)
DX: D17.1 Benign lipomatous neoplasm of skin and subcutaneous tissue of trunk (principal); I11.0 Hypertensive heart disease with heart failure; I50.9 Heart failure, unspecified; I25.119 Atherosclerotic heart disease of native coronary artery with unspecified angina pectoris; I49.9 Cardiac arrhythmia, unspecified; I25.2 Old myocardial infarction; Z95.1 Presence of aortocoronary bypass graft; Z95.5 Presence of coronary angioplasty implant and graft; Z79.899 Other long term (current) drug therapy; Z79.82 Long term (current) use of aspirin; Z79.02 Long term (current) use of antithrombotics/antiplatelets; Z87.891 Personal history of nicotine dependence
CPT/HCPCS: 11406; 12034; J0690; J7120

== ENCOUNTER 2020-03-09 13:47 | Emergency (ER) | payer MEDICARE, BC ==
[2020-03-09] MEDS ORDERED: SODIUM CHLORIDE 0.9% 1,000 ML IV STA (14:20)
--- NOTE | 2020-03-09 14:24 | ED Physician Documentation ---
PD HPI ALTERED MENTAL STATUS - Stated complaint Stated Complaint: CONFUSION - Chief complaint Chief Complaint: Neuro - History obtained from History obtained from: Patient - History of Present Illness Timing - onset: Today Timing - duration: Hours Timing - details: Gradual onset, Still present, Waxing and waning Quality / character: Confused Associated symptoms: Other (no sleep for 3 nights). No: Fever, Headache, Stiff neck, Dyspnea, Cough, NVD, Urinary sx, General weakness, Focal weakness, Seizure activity, Syncope Contributing factors: Known dementia [place] status: Ambulatory, Independent, Confused Similar symptoms before: Diagnosis (dementia) Recently seen: Clinic - Additional information Additional information: 79-year-old male who has a 3-year history of advancing dementia has run out of his Rohypnol and has bad restless leg syndrome. He has been without his Rohypnol now for 3 nights and he has not slept in 3 nights. Today they were getting ready to go out in the car and the patient was unable to negotiate putting the keys into the car to start it. He recognized acute confusion discussed this with his and she has brought him here to the emergency department for evaluation. The patient was concerned about the possibility of a stroke. He does not have any focal neuro deficit that is obvious. Review of Systems Constitutional: denies: Fever, Chills, Myalgias, Fatigue, Sweats Eyes: denies: Decreased vision Ears: denies: Ear pain Nose: denies: Rhinorrhea / runny nose, Congestion Throat: denies: Sore throat Cardiac: denies: Chest pain / pressure, Palpitations Respiratory: denies: Dyspnea, Cough GI: denies: Abdominal Pain, Nausea, Vomiting, Constipation, Diarrhea : denies: Dysuria, Frequency Musculoskeletal: denies: Neck pain, Back pain, Extremity pain Neurologic: reports: Confused. denies: Generalized weakness, Focal weakness, N umbness, Difficulty speaking, Near syncope, Seizure, Headache, Head injury, LOC PD PAST MEDICAL HISTORY - Past Medical History Cardiovascular: Hypertension, High cholesterol, Coronary artery disease Respiratory: None Neuro: None Endocrine/Autoimmune: None GI: None : None HEENT: None Psych: None Musculoskeletal: None Derm: None - Past Surgical History Past Surgical History: Yes General: Cholecystectomy Cardiovascular: Coronary stent - Present Medications Home Medications: Ambulatory Orders Medication Instructions Recorded Confirmed Multivitamin [Multivitamins] 1 tab PO DAILY 08/27/14 04/29/19 Rosuvastatin Calcium [Crestor] 10 mg PO DAILY 08/27/14 05/01/19 Isosorbide Mononitrate [Isosorbide 0 mg PO BID 03/11/15 04/29/19 Mononitrate ER] rOPINIRole [Requip] 0.25 mg PO TID PRN 12/18/15 04/29/19 Cholecalciferol [Vitamin D3] 5,000 unit ORAL DAILY 06/16/17 04/29/19 Dutasteride/Tamsulosin HCl 1 each PO DAILY 06/16/17 04/29/19 [Dutasteride-Tamsulosin 0.5-0.4] Vitamin B Complex 1 each PO DAILY 06/16/17 05/01/19 carvediloL [Coreg] 25 mg PO BID 06/16/17 04/29/19 Aspirin 81 mg PO DAILY 04/29/19 05/01/19 Furosemide [Lasix] 40 mg PO DAILY 04/29/19 05/01/19 Losartan Potassium 25 mg PO DAILY 04/29/19 05/01/19 Donepezil [Aricept] 5 mg DAILY 03/09/20 03/09/20 Dutasteride/Tamsulosin HCl [[place] DAILY 03/09/20 0.5-0.4 mg Capsule] Ergocalciferol [Vitamin D2] 03/09/20 03/09/20 Oxybutynin Chloride [Oxybutynin 1 tab DAILY 03/09/20 03/09/20 Chloride ER] - Allergies Allergies/Adverse Reactions: Allergies Allergy/AdvReac Type Severity Reaction Status Date / Time atorvastatin [From Lipitor] Allergy Unknown Verified 04/29/19 14:46 hydrocodone Allergy Unknown Verified 04/29/19 14:46 testosterone [From Androderm] Allergy Unknown Verified 04/29/19 14:46 - Social History Does the pt smoke?: No Smoking Status: Never smoker Does the pt drink ETOH?: Yes Does the pt have substance abuse?: No - Immunizations Immunizations are current?: Yes - POLST Patient has POLST: No PD ED PE NORMAL - Vitals Vital signs reviewed: Yes (hypertensive ) - General General: Alert and oriented X 3, No acute distress, Well developed/nourished - HEENT HEENT: Atraumatic, PERRL, EOMI, Other (dentition is poor) - Neck Neck: Supple, no meningeal sign, No bony TTP - Cardiac Cardiac: RRR, No murmur - Respiratory Respiratory: No respiratory distress, Clear bilaterally - Abdomen Abdomen: Soft, Non tender - Back Back: No CVA TTP, No spinal TTP - Derm Derm: Normal color, Warm and dry, No rash - Extremities Extremities: No deformity, No tenderness to palpate, Normal ROM s pain, No edema, No calf tenderness / cord - Neuro Neuro: loop tacker 2-12 intact, No motor deficit, No sensory deficit, Normal speech Eye Opening: Spontaneous Motor: Obeys Commands Verbal: Confused GCS Score: 14 - Psych Psych: Normal mood, Normal affect Results - Vitals Vitals: Vital Signs - 24 hr 03/09/20 03/09/20 03/09/20 14:02 14:48 14:56 Temperature 37.2 C Heart Rate 71 65 66 Respiratory 18 22 18 Rate Blood Pressure 178/105 H 206/129 H 183/100 H O2 Saturation 94 97 98 03/09/20 03/09/20 03/09/20 15:18 15:30 16:00 Temperature 36.4 C L Heart Rate 65 65 65 Respiratory 23 21 16 Rate Blood Pressure 190/109 H 194/107 H 200/102 H O2 Saturation 95 96 95 Oxygen O2 Source Room air - EKG (time done) 1427 Rate: Rate (enter#) (72) [place]: LAD Intervals: Other (incomplete LBBB) QRS: LVH Ischemia: Normal ST segments, Non specific changes (lateral T-wave flattening) Compare to prior EKG: Changed from prior EKG ([facility] 08-11-2020 lateral T-wave fl attening has occurred) Computer interpretation: Agree with computer - Labs Labs: Laboratory Tests 03/09/20 03/09/20 03/09/20 14:21 14:25 14:25 WBC 9.2 RBC 6.19 H Hgb 18.9 H Hct 54.1 H MCV 87.4 MCH 30.5 MCHC 34.9 RDW 13.4 Plt Count 178 MPV 10.5 Neut # (Auto) 6.3 Lymph # (Auto) 2.0 [place] # (Auto) 0.7 Eos # (Auto) 0.1 Baso # (Auto) 0.1 Absolute Nucleated RBC 0.00 Nucleated RBC % 0.0 Sodium 138 Potassium 3.9 Chloride 102 Carbon Dioxide 25 Anion Gap 11.0 BUN 18 Creatinine 1.0 Estimated GFR (MDRD) 72 L Glucose 122 H POC Whole Bld Glucose 128 H Lactic Acid Calcium 9.2 Total Bilirubin 0.9 AST 22 ALT 13 Alkaline Phosphatase 73 Total Protein 6.7 Albumin 4.0 Globulin 2.7 Albumin/Globulin Ratio 1.5 Lipase 61 H Urine Color Urine Clarity Urine pH Ur Specific [place] Urine Protein Urine Glucose (UA) Urine Ketones Urine Occult Blood Urine Nitrite Urine Bilirubin Urine Urobilinogen Ur Leukocyte Esterase Ur Microscopic Review Urine Culture Comments 03/09/20 03/09/20 14:25 15:26 WBC RBC Hgb Hct MCV MCH MCHC RDW Plt Count MPV Neut # (Auto) Lymph # (Auto) [place] # (Auto) Eos # (Auto) Baso # (Auto) Absolute Nucleated RBC Nucleated RBC % Sodium Potassium Chloride Carbon Dioxide Anion Gap BUN Creatinine Estimated GFR (MDRD) Glucose POC Whole Bld Glucose Lactic Acid 1.4 Calcium Total Bilirubin AST ALT Alkaline Phosphatase Total Protein Albumin Globulin Albumin/Globulin Ratio Lipase Urine Color YELLOW Urine Clarity CLEAR Urine pH 7.0 Ur Specific [place] 1.020 Urine Protein NEGATIVE Urine Glucose (UA) NEGATIVE Urine Ketones NEGATIVE Urine Occult Blood NEGATIVE Urine Nitrite NEGATIVE Urine Bilirubin NEGATIVE Urine Urobilinogen 0.2 (NORMAL) Ur Leukocyte Esterase NEGATIVE Ur Microscopic Review NOT INDICATED Urine Culture Comments NOT INDICATED - Rads (name of study) CT head Radiology: Prelim report reviewed (Impression: No acute intracranial process.), EMP read indepedently, See rad report Procedures - IVC sono (time) 1420 Bedside IVC sono: IVC measures (cm) (0.96), IVC collapsed c insp (cm) (complete), Dehydration (est 1-2 liter deficit) PD MEDICAL DECISION MAKING - ED course Complexity details: reviewed old records, reviewed results, re-evaluated patient, considered differential, d/w patient, d/w family ED course: 79-year-old male with early dementia is more confused today than usual. He has been unable to sleep for the past 3 nights secondary to running out of his medication restless legs. He is found to be dehydrated on interrogation of the inferior vena cava and he is administered saline. Departure - Departure Disposition: 01 Home, Self Care Clinical Impression: Confusion, Dehydration, Sleep deprivation Instructions: ED Dehydration, ED Insomnia Follow-Up: Bismark Marin MD [Primary Care Provider] - Discharge Date/Time: 03/09/20 16:24
[2020-03-09 14:35] LABS: BASOPHILS # (AUTO) 0.1 10^3/uL (0.0-0.1); BASOPHILS % (AUTO) 0.7 %; EOSINOPHILS # (AUTO) 0.1 10^3/uL (0.0-0.7); EOSINOPHILS % (AUTO) 0.5 %; HGB - HEMOGLOBIN 18.9 g/dL (14.0-18.0); LYMPHOCYTES % (AUTO) 22.3 %; MEAN CORPUSCULAR HEMOGLOBIN 30.5 pg (27.0-31.0); MEAN CORPUSCULAR HGB CONC 34.9 g/dL (32.0-36.0); MEAN CORPUSCULAR VOLUME 87.4 fL (80.0-94.0); MEAN PLATELET VOLUME 10.5 fL (7.4-11.4); MONOCYTES # (AUTO) 0.7 10^3/uL (0.0-1.0); MONOCYTES % (AUTO) 7.3 %; NEUTROPHILS # (AUTO) 6.3 10^3/uL (1.5-6.6); NEUTROPHILS % (AUTO) 68.9 %; PLT - PLATELET COUNT 178 10^3/uL (130-450); RED BLOOD COUNT 6.19 10^6/uL (4.70-6.10); RED CELL DISTRIBUTION WIDTH 13.4 % (12.0-15.0); WHITE BLOOD COUNT 9.2 x10^3/uL (4.8-10.8)
[2020-03-09 14:51] LABS: ALBUMIN/GLOBULIN RATIO 1.5 (1.0-2.2); BILIRUBIN,TOTAL 0.9 mg/dL (0.2-1.0); CALCIUM 9.2 mg/dL (8.5-10.3); TOTAL PROTEIN 6.7 g/dL (6.7-8.2)
--- NOTE | 2020-03-09 15:32 | CT Report ---
PROCEDURE: HEAD WO INDICATIONS: altered mental status TECHNIQUE: Noncontrast 4.5 mm thick angled axial sections acquired from the foramen magnum to the vertex. For r adiation dose reduction, the following was used: automated exposure control, adjustment of mA and/or kV according to patient size. COMPARISON: None. FINDINGS: Image quality: Excellent. CSF spaces: Basal cisterns are patent. No extra-axial fluid collections. Ventricles are normal in size and shape. Brain: No midline shift. No intracranial masses or hemorrhage. Haque-white matter interface is norm al. Skull and face: Calvarium and visualized facial bones are intact, without suspicious lesions. Sinuses: Visualized sinuses and mastoids are clear. IMPRESSION: No acute intracranial process. Reviewed by: Norberto Lutz MD on 03/09/2020 3:30 PM PDT Approved by: Norberto Lutz MD on 03/09/2020 3:30 PM PDT Station ID: [id number]
[2020-03-09 15:41] LABS: BILIRUBIN,URINE NEGATIVE (NEGATIVE); GLUCOSE, URINE (UA) NEGATIVE (NEGATIVE); KETONES,URINE (UA) NEGATIVE (NEGATIVE); LEUKOCYTE ESTERASE, URINE NEGATIVE (NEGATIVE); NITRITE,URINE NEGATIVE (NEGATIVE); OCCULT BLOOD,URINE NEGATIVE (NEGATIVE); PROTEIN,URINE NEGATIVE (NEGATIVE); UROBILINOGEN,URINE 0.2 (NORMAL) E.U./dL (NORMAL)
[2020-03-09] MEDS ORDERED: rOPINIRole 0.25 MG TABLET PO STA (15:42)
[2020-03-09 15:52] LABS: CLARITY,URINE CLEAR (CLEAR)
[2020-03-09 16:04] VITALS: BP 200/102
== END 2020-03-09 16:24 | disposition home or self-care (01) ==
LOC: ED 13:47
DX: F03.90 Unspecified dementia, unspecified severity, without behavioral disturbance, psychotic disturbance, mood disturbance, and anxiety (principal); R41.0 Disorientation, unspecified; E86.0 Dehydration; G25.81 Restless legs syndrome; Z72.820 Sleep deprivation; I10 Essential (primary) hypertension; Z79.82 Long term (current) use of aspirin
CPT/HCPCS: 36415; 70450; 80053; 81003; 83605; 83690; 85025; 93005; 96360; 99284; A9270; 81001; 87086

== ENCOUNTER 2020-05-29 17:35 | Outpatient (CLI) | payer MEDICARE, BC | END 2020-05-29 23:59 | disposition short-term general hospital (02) | LOC: EMS 17:35 | PROVIDERS: ATTEND Surgery | DX: R07.9 Chest pain, unspecified (principal); R11.0 Nausea; R42 Dizziness and giddiness | CPT/HCPCS: A0425; A0427 ==

== ENCOUNTER 2020-08-04 20:20 | Outpatient (CLI) | payer MEDICARE, BC | END 2020-08-04 20:21 | disposition EMS.NT | LOC: EMS 20:20 | PROVIDERS: ATTEND Surgery | DX: Z03.89 Encounter for observation for other suspected diseases and conditions ruled out (principal) ==

== ENCOUNTER 2020-09-01 12:52 | Emergency (ER) | payer MEDICARE, BC ==
[2020-09-01 14:00] LABS: CALCIUM 9.1 mg/dL (8.5-10.3); CREATININE 1.1 mg/dL (0.6-1.2)
--- NOTE | 2020-09-01 14:42 | ED Physician Documentation ---
History of Present Illness - Stated complaint Stated Complaint: HIGH PATASSIUM/SENT BY - Chief complaint Chief Complaint: General - History obtained from History obtained from: Patient, Family - Additonal information Additional information: Patient is brought to the emergency department by his for chief complaint of high potassium. The patient was told to come here by Dr. Marin's office a fter apparently having routine labs and finding a high potassium. Unfortunately, the patient and his were not told what the numbers were, and we did not receive a call from Dr. Marin's office so it is not known how high the potassium might have been. Patient's states that this was just drawn within the last couple of days. The patient denies complaints. No palpitations. No chest pain or shortness of breath. No numbness or tingling. He has not had vomiting or diarrhea recently. He is supposed to be on Lasix, but does not like the Lasix because it makes him stay up all night urinating, so he has not been taking his night dose. He has intermittent swelling in his lower extremities, but states that has not been too bad lately. No other complaints at this time. No shortness of breath. Review of Systems Ten Systems: 10 systems reviewed and negative Constitutional: reports: Reviewed and negative Eyes: reports: Reviewed and negative Ears: reports: Reviewed and negative Nose: reports: Reviewed and negative Throat: reports: Reviewed and negative Cardiac: reports: Reviewed and negative Respiratory: reports: Reviewed and negative GI: reports: Reviewed and negative : reports: Reviewed and negative Skin: reports: Reviewed and negative Musculoskeletal: reports: Reviewed and negative Neurologic: reports: Reviewed and negative Psychiatric: reports: Reviewed and negative Endocrine: reports: Reviewed and negative Immunocompromised: reports: Reviewed and negative PD PAST MEDICAL HISTORY - Past Medical History Cardiovascular: Hypertension, High cholesterol, Coronary artery disease, [place] Respiratory: None Neuro: None Endocrine/Autoimmune: None GI: None : None HEENT: None Psych: None Musculoskeletal: None Derm: None - Past Surgical History Past Surgical History: Yes General: Cholecystectomy Cardiovascular: Coronary stent - Present Medications Home Medications: Ambulatory Orders Medication Instructions Recorded Confirmed Multivitamin [Multivitamins] 1 tab PO DAILY 08/27/14 09/01/20 Rosuvastatin Calcium [Crestor] 10 mg PO DAILY 08/27/14 09/01/20 Isosorbide Mononitrate [Isosorbide 60 mg PO BID 03/11/15 09/01/20 Mononitrate ER] rOPINIRole [Requip] 0.25 mg PO TID PRN 12/18/15 09/01/20 Cholecalciferol [Vitamin D3] 5,000 unit ORAL DAILY 06/16/17 09/01/20 Dutasteride/Tamsulosin HCl 1 each PO DAILY 06/16/17 09/01/20 [Dutasteride-Tamsulosin 0.5-0.4] Vitamin B Complex 1 each PO DAILY 06/16/17 09/01/20 carvediloL [Coreg] 12.5 mg PO BID 06/16/17 09/01/20 Aspirin 325 mg PO DAILY 04/29/19 09/01/20 Furosemide [Lasix] 40 mg PO DAILY 04/29/19 09/01/20 Losartan Potassium 25 mg PO DAILY 04/29/19 09/01/20 Celecoxib [Celebrex] 200 mg DAILY 09/01/20 09/01/20 amLODIPine [Norvasc] 5 mg DAILY 09/01/20 09/01/20 - Allergies Allergies/Adverse Reactions: Allergies Allergy/AdvReac Type Severity Reaction Status Date / Time atorvastatin [From Lipitor] Allergy Unknown Verified 09/01/20 12:59 hydrocodone Allergy Unknown Verified 09/01/20 12:59 testosterone [From Androderm] Allergy Unknown Verified 09/01/20 12:59 - Social History Does the pt smoke?: No Smoking Status: Never smoker Does the pt drink ETOH?: Yes Does the pt have substance abuse?: No - Immunizations Immunizations are current?: Yes - POLST Patient has POLST: No PD ED PE NORMAL - Vitals Vital signs reviewed: Yes - General General: Alert and oriented X 3, No acute distress - HEENT HEENT: Atraumatic, PERRL, EOMI, Moist mucous membranes - Neck Neck: Supple, no meningeal sign - Cardiac Cardiac: RRR, No murmur - Respiratory Respiratory: No respiratory distress, Clear bilaterally - Abdomen Abdomen: Soft, Non tender, Non distended - Derm Derm: Normal color, Warm and dry, No rash - Extremities Extremities: No deformity, No edema, No calf tenderness / cord - Neuro Neuro: Alert and oriented X 3 - Psych Psych: Normal mood, Normal affect Results - Vitals Vitals: Vital Signs - 24 hr 09/01/20 09/01/20 12:59 15:00 Temperature 36.6 C Heart Rate 70 63 Respiratory 16 16 Rate Blood Pressure 104/61 117/82 H O2 Saturation 98 100 Oxygen O2 Source Room air - EKG (time done) 1308 Rate: Rate (enter#) (68) Rhythm: NSR [place]: Normal Intervals: Normal TN, LBBB (incomplete) QRS: Normal Ischemia: Normal ST segments Compare to prior EKG: Old EKG unavailable Computer interpretation: Agree with computer - Labs Labs: Laboratory Tests 09/01/20 13:40 Sodium 142 Potassium 3.8 Chloride 102 Carbon Dioxide 24 Anion Gap 16.0 H BUN 14 Creatinine 1.1 Estimated GFR (MDRD) 64 L Glucose 190 H Calcium 9.1 PD MEDICAL DECISION MAKING - ED course Complexity details: reviewed results, re-evaluated patient, considered differential, d/w patient, d/w family ED course: A potassium was checked here in the emergency department, and was found to be normal at 3.8. Multiple attempts to get a hold of Dr. Marin's office were unsuccessful. It is not clear what the former level was, nor if this was hemolyzed as a reason for an elevated reading, but at this time, the patient does not have hyperkalemia.We have discussed the usual indications for return. Departure - Departure Disposition: 01 Home, Self Care Clinical Impression: Follow up Condition: Stable Comments: Your potassium in the emergency department today was completely normal. It is not clear why your doctor's office got a high reading. Sometimes, if too many of the blood cells are traumatized during the blood draw, or if the blood sits around for too long before being analyzed, the potassium level can be falsely high. In such cases, it is best to get a repeat blood draw and run it right away on the lab machine to make sure that the potassium level is accurate. It is unlikely that you had a truly high potassium level which normalized itself in this short period of time. Because your doctor's office did not send records or give us a call to let us know what your levels were, and because they have been unable to be reached today, it is impossible to know exactly what your level was. However, given our rapid laboratory evaluation in the ER, we can be confident that your current potassium level is normal. Additionally, your EKG looks great and shows no signs of any high potassium. Please follow-up with your primary doctor for further needs. Discharge Date/Time: 09/01/20 15:06
[2020-09-01 15:40] VITALS: BP 117/82
== END 2020-09-01 15:06 | disposition home or self-care (01) ==
LOC: ED 12:52
DX: Z51.89 Encounter for other specified aftercare (principal); I10 Essential (primary) hypertension; I44.7 Left bundle-branch block, unspecified; Z79.82 Long term (current) use of aspirin
CPT/HCPCS: 36415; 80048; 99282; 99283

== ENCOUNTER 2021-01-07 21:02 | Emergency (ER) | payer MEDICARE, BC ==
--- NOTE | 2021-01-07 21:11 | ED Physician Documentation ---
PD HPI HEADACHE - Stated complaint Stated Complaint: HEAD PX - Chief complaint Chief Complaint: Neuro - History obtained from History obtained from: Patient, Family () - History of Present Illness Timing - onset: How many days ago (3) Timing - onset during: Rest Timing - duration: Days (3) Timing - details: Gradual onset (Onset without trauma of right sided earache and now general right-sided headache over the past 3 days. Progressively worse. Unresponsive to Tylenol. No noted injury or focal deficits.), Still present Location: Right (around the ear initially, now right side of head.) Quality: Throbbing, Aching Associated symptoms: Nausea (yesterday). No: Fever, Stiff neck, Weakness, Numbness, Vision changes Improved by: No: Rest Worsened by: No: Light, Noise Contributing factors: No: Hypertension, Recent illness, Trauma Similar symptoms before: Has not had sx before Recently seen: Not recently seen Review of Systems Constitutional: denies: Fever, Chills Nose: denies: Rhinorrhea / runny nose, Congestion Throat: denies: Sore throat Cardiac: denies: Chest pain / pressure Respiratory: denies: Dyspnea, Cough GI: reports: Vomiting (once yesterday). denies: Constipation, Diarrhea Neurologic: denies: Focal weakness, Numbness, Near syncope, Altered mental status (baseline level of dementia per ) PD PAST MEDICAL HISTORY - Past Medical History Cardiovascular: Hypertension, High cholesterol, Coronary artery disease, [place] Respiratory: None Neuro: None Endocrine/Autoimmune: None GI: None : None HEENT: None Psych: None Musculoskeletal: None Derm: None - Past Surgical History Past Surgical History: Yes General: Cholecystectomy Cardiovascular: Coronary stent - Present Medications Home Medications: Ambulatory Orders Medication Instructions Recorded Confirmed Multivitamin [Multivitamins] 1 tab PO DAILY 08/27/14 01/07/21 Rosuvastatin Calcium [Crestor] 10 mg PO DAILY 08/27/14 01/07/21 Isosorbide Mononitrate [Isosorbide 60 mg PO BID 03/11/15 01/07/21 Mononitrate ER] rOPINIRole [Requip] 0.25 mg PO TID PRN 12/18/15 01/07/21 Cholecalciferol [Vitamin D3] 5,000 unit ORAL DAILY 06/16/17 01/07/21 Dutasteride/Tamsulosin HCl 1 each PO DAILY 06/16/17 01/07/21 [Dutasteride-Tamsulosin 0.5-0.4] Vitamin B Complex 1 each PO DAILY 06/16/17 01/07/21 carvediloL [Coreg] 12.5 mg PO BID 06/16/17 01/07/21 Aspirin 325 mg PO DAILY 04/29/19 09/01/20 Furosemide [Lasix] 40 mg PO DAILY 04/29/19 01/07/21 Losartan Potassium 25 mg PO DAILY 04/29/19 01/07/21 Celecoxib [Celebrex] 200 mg DAILY 09/01/20 01/07/21 amLODIPine [Norvasc] 5 mg DAILY 09/01/20 01/07/21 Amoxicillin 500 mg PO TID #20 cap 01/07/21 Oxycodone HCl/Acetaminophen 1 each PO Q8H PRN #10 tablet 01/07/21 [Percocet 5-325 mg Tablet] Ticagrelor [Brilinta] 60 mg PO DAILY 01/07/21 01/07/21 - Allergies Allergies/Adverse Reactions: Allergies Allergy/AdvReac Type Severity Reaction Status Date / Time atorvastatin [From Lipitor] Allergy Unknown Verified 01/07/21 21:05 hydrocodone Allergy Unknown Verified 01/07/21 21:05 testosterone [From Androderm] Allergy Unknown Verified 01/07/21 21:05 - Social History Does the pt smoke?: No Smoking Status: Never smoker Does the pt drink ETOH?: Yes Does the pt have substance abuse?: No - Immunizations Immunizations are current?: Yes - POLST Patient has POLST: No PD ED PE NORMAL - Vitals Vital signs reviewed: Yes - General General: Alert and oriented X 3, No acute distress, Other (He appears uncomfortable and is having his hand over the right ear area. No skin sensitivity and no rashes seen.). No: Well developed/nourished (He does appear well-nourished. However he is moderately unkempt with untrimmed turner and some dirt around his fingernails and some dirty clothes. His states he is rel uctant to let her help clean him.) - HEENT HEENT: Moist mucous membranes, Pharynx benign, Other (Ear canal is normal. Right TM with some redness and fluid pressure. ) - Neck Neck: Supple, no meningeal sign, No adenopathy - Cardiac Cardiac: RRR, No murmur - Respiratory Respiratory: Clear bilaterally - Abdomen Abdomen: Soft, Non tender - Derm Derm: Normal color, Warm and dry - Neuro Neuro: Alert and oriented X 3, coil winder strap 2-12 intact, No motor deficit, No sensory deficit, Normal speech Results - Vitals Vitals: Oxygen O2 Source Room air - Labs Labs: Laboratory Tests 01/07/21 01/07/21 01/07/21 21:27 21:27 21:27 WBC 7.8 RBC 5.38 Hgb 15.9 Hct 47.6 MCV 88.5 MCH 29.6 MCHC 33.4 RDW 14.1 Plt Count 187 MPV 9.9 Neut # (Auto) 4.7 Lymph # (Auto) 2.2 [place] # (Auto) 0.7 Eos # (Auto) 0.1 Baso # (Auto) 0.1 Absolute Nucleated RBC 0.00 Nucleated RBC % 0.0 ESR 1 Sodium 141 Potassium 4.0 Chloride 108 Carbon Dioxide 26 Anion Gap 7.0 BUN 27 H Creatinine 1.1 Estimated GFR (MDRD) 64 L Glucose 108 H Calcium 8.6 Total Bilirubin 0.5 AST 16 ALT < 10 L Alkaline Phosphatase 61 Total Protein 5.6 L Albumin 3.3 Globulin 2.3 Albumin/Globulin Ratio 1.4 Lipase 43 - Rads (name of study) head CT Radiology: Prelim report reviewed (no acute findings. ), See rad report PD MEDICAL DECISION MAKING - ED course Complexity details: re-evaluated patient, considered differential (No noted trauma. He has headache on the right side for 3 days. We can get a CT scan to ensure no tumor swelling or bleeding. No focal deficits to suggest ischemic process. The eardrum is a little red so may be an ear infection. No skin sores or rash to suggest shingles at this time.), d/w patient Departure - Departure Disposition: 01 Home, Self Care Clinical Impression: Right-sided headache Otitis media Qualifiers: Otitis media type: suppurative Chronicity: acute Laterality: right Recurrence: non-recurrent Spontaneous tympanic membrane rupture: without spontaneous rupture Qualified Code(s): H66.001 - Acute suppurative otitis media without spontaneous rupture of ear drum, right ear Condition: Stable Record reviewed to determine appropriate education?: Yes Instructions: ED Cephalgia Unspecified, ED Otitis Media Acute Adult Prescriptions: Amoxicillin 500 mg PO TID #20 cap Oxycodone HCl/Acetaminophen [Percocet 5-325 mg Tablet] 1 each PO Q8H PRN #10 tablet PRN Reason: pain Comments: Your blood count and inflammatory marker (ESR) are normal as is your head CT scan. No signs of bleeding swelling tumors or significant inflammatory cause for your pain. Your ear canal and eardrum are red and so this may represent an ear infection with local pain. Use amoxicillin 3 times a day for a week. Add Tylenol 4 times a day for the pain. Use the oxycodone if needed instead for worse pain in the short-term. Recheck if not improved well over the next several days. Return if increasing headache, fevers, vomiting, or you develop a rash or other indications of different diagnosis. Discharge Date/Time: 01/07/21 23:09
[2021-01-07] MEDS ORDERED: HYDROmorphone 2 MG/ML VIAL IM STA (21:28)
[2021-01-07] MEDS ORDERED: AMOXICILLIN 250 MG CAPSULE PO STA (21:28)
[2021-01-07] MEDS ORDERED: KETOROLAC 30 MG/ML VIAL IM STA (21:28)
[2021-01-07 21:36] LABS: BASOPHILS # (AUTO) 0.1 10^3/uL (0.0-0.1); BASOPHILS % (AUTO) 1.2 %; EOSINOPHILS # (AUTO) 0.1 10^3/uL (0.0-0.7); EOSINOPHILS % (AUTO) 1.7 %; HCT - HEMATOCRIT 47.6 % (42.0-52.0); HGB - HEMOGLOBIN 15.9 g/dL (14.0-18.0); LYMPHOCYTES # (AUTO) 2.2 10^3/uL (1.5-3.5); LYMPHOCYTES % (AUTO) 28.3 %; MEAN CORPUSCULAR HEMOGLOBIN 29.6 pg (27.0-31.0); MEAN CORPUSCULAR HGB CONC 33.4 g/dL (32.0-36.0); MEAN CORPUSCULAR VOLUME 88.5 fL (80.0-94.0); MEAN PLATELET VOLUME 9.9 fL (7.4-11.4); MONOCYTES # (AUTO) 0.7 10^3/uL (0.0-1.0); MONOCYTES % (AUTO) 8.4 %; NEUTROPHILS # (AUTO) 4.7 10^3/uL (1.5-6.6); PLT - PLATELET COUNT 187 10^3/uL (130-450); RED BLOOD COUNT 5.38 10^6/uL (4.70-6.10); RED CELL DISTRIBUTION WIDTH 14.1 % (12.0-15.0); WHITE BLOOD COUNT 7.8 x10^3/uL (4.8-10.8)
[2021-01-07 21:51] LABS: ALBUMIN 3.3 g/dL (3.2-5.5); ALBUMIN/GLOBULIN RATIO 1.4 (1.0-2.2); ALKALINE PHOSPHATASE 61 IU/L (42-121); ALT ALANINE AMINOTRANSFERASE < 10 IU/L (10-60); AST ASPARTATE AMINOTRANSFERASE 16 IU/L (10-42); BILIRUBIN,TOTAL 0.5 mg/dL (0.2-1.0); BUN - BLOOD UREA NITROGEN 27 mg/dL (6-20); CALCIUM 8.6 mg/dL (8.5-10.3); CARBON DIOXIDE - CO2 26 mmol/L (21-32); CHLORIDE 108 mmol/L (101-111); CREATININE 1.1 mg/dL (0.6-1.2); GFR - MDRD 64 (>89); GLUCOSE 108 mg/dL (70-100); LIPASE 43 U/L (22-51); SODIUM 141 mmol/L (135-145); TOTAL PROTEIN 5.6 g/dL (6.7-8.2)
[2021-01-07 23:10] VITALS: BP 125/72
--- NOTE | 2021-01-08 07:18 | CT Report ---
PROCEDURE: HEAD WO INDICATIONS: right sided headache for 3 days TECHNIQUE: Noncontrast 4.5 mm thick angled axial sections acquired from the foramen magnum to the vertex. For r adiation dose reduction, the following was used: automated exposure control, adjustment of mA and/or kV according to patient size. COMPARISON: None. FINDINGS: Image quality: Excellent. CSF spaces: Basal cisterns are patent. No extra-axial fluid collections. Prominence of the ventricl es and extra-axial CSF spaces consistent with cerebral atrophy.. Brain: No midline shift. No intracranial masses or hemorrhage. Diffuse periventricular and deep wh ite matter hypoattenuation consistent with microvascular ischemic changes. Haque-white matter interfac e is normal. Skull and face: Calvarium and visualized facial bones are intact, without suspicious lesions. Sinuses: Mild maxillary sinus mucosal thickening. IMPRESSION: Findings consistent with microvascular ischemic and cerebral volume loss without evidence of an acute intracranial abnormality. Mild maxillary sinus mucosal thickening. Agree with preliminary report. Reviewed by: Juanpablo Chu DO on 01/08/2021 6:17 AM LARA Approved by: Juanpablo Chu DO on 01/08/2021 6:17 AM LARA Station ID: [id number]
== END 2021-01-07 23:09 | disposition home or self-care (01) ==
LOC: ED 21:02
DX: H66.001 Acute suppurative otitis media without spontaneous rupture of ear drum, right ear (principal); R51.9 Headache, unspecified; I10 Essential (primary) hypertension; Z95.5 Presence of coronary angioplasty implant and graft
CPT/HCPCS: 36415; 70450; 80053; 83690; 85025; 85651; 96372; 99284; A9270; J1170

== ENCOUNTER 2021-01-11 12:00 | Emergency (ER) | payer MEDICARE, BC ==
--- OUTSIDE RECORDS SUMMARY | 2021-01-11 12:03 | EXTERNAL MEDICAL SUMMARY RPT | Continuity of Care Document ---
:1940 Demographics Phone Unavailable Preferred Language Unknown Marital Status Unknown L[employer]-Day Affiliation Unknown Race Unknown Ethnic Group Unknown Author Organization [facility] Address [address] [phone] Phone Social History date description facility [id number]
--- OUTSIDE RECORDS SUMMARY | 2021-01-11 12:19 | EXTERNAL MEDICAL SUMMARY RPT | Continuity of Care Document ---
:1940 Demographics Phone Unavailable Preferred Language Unknown Marital Status Unknown Church Affiliation Unknown Race Unknown Ethnic Group Unknown Author Organization [facility] Address [address] [phone] Phone Social History date description facility [id number]
[2021-01-11] MEDS ORDERED: CHERRY SYRUP 10 ML UDC PO ONE (13:50)
[2021-01-11] MEDS ORDERED: DEXAMETHASONE 10 MG/ML VIAL PO STA (13:50)
[2021-01-11] MEDS ORDERED: HYDROcod/ACETAM 5/325 MG TABLET PO STA (13:50)
[2021-01-11] MEDS ORDERED: PSEUDOEPHEDRINE 30 MG TABLET PO STA (13:50)
--- NOTE | 2021-01-11 13:54 | ED Physician Documentation ---
History of Present Illness - Stated complaint Stated Complaint: HEAD/EAR PX/SORE THROAT - Chief complaint Chief Complaint: Heent - History obtained from History obtained from: Patient, Family - History of Present Illness Timing: How many days ago (3) Pain level max: 8 Pain level now: 8 - Additonal information Additional information: Patient is an 80-year-old male who presents to the emergency department complaining of a sore throat, nasal congestion and right ear pain for the past several days. Seen here previously. Negative head CT other than mild sinus thickening Review of Systems Constitutional: denies: Fever, Chills Ears: reports: Ear pain (R ear pain, dull, aching) Nose: reports: Congestion Throat: reports: Sore throat Cardiac: denies: Chest pain / pressure Respiratory: denies: Dyspnea, Cough, Wheezing GI: denies: Abdominal Pain, Nausea, Vomiting, Diarrhea : denies: Dysuria Skin: denies: Rash Musculoskeletal: denies: Neck pain, Back pain Neurologic: denies: Headache PD PAST MEDICAL HISTORY - Past Medical History Past Medical History: Yes Cardiovascular: Hypertension, High cholesterol, Coronary artery disease, [place] Respiratory: None Neuro: None Endocrine/Autoimmune: None GI: None : None HEENT: None Psych: None Musculoskeletal: None Derm: None - Past Surgical History Past Surgical History: Yes General: Cholecystectomy Cardiovascular: Coronary stent - Present Medications Home Medications: Ambulatory Orders Medication Instructions Recorded Confirmed Multivitamin [Multivitamins] 1 tab PO DAILY 08/27/14 01/07/21 Rosuvastatin Calcium [Crestor] 10 mg PO DAILY 08/27/14 01/07/21 Isosorbide Mononitrate [Isosorbide 60 mg PO BID 03/11/15 01/07/21 Mononitrate ER] rOPINIRole [Requip] 0.25 mg PO TID PRN 12/18/15 01/07/21 Cholecalciferol [Vitamin D3] 5,000 unit ORAL DAILY 06/16/17 01/07/21 Dutasteride/Tamsulosin HCl 1 each PO DAILY 06/16/17 01/07/21 [Dutasteride-Tamsulosin 0.5-0.4] Vitamin B Complex 1 each PO DAILY 06/16/17 01/07/21 carvediloL [Coreg] 12.5 mg PO BID 06/16/17 01/07/21 Aspirin 325 mg PO DAILY 04/29/19 09/01/20 Furosemide [Lasix] 40 mg PO DAILY 04/29/19 01/07/21 Losartan Potassium 25 mg PO DAILY 04/29/19 01/07/21 Celecoxib [Celebrex] 200 mg DAILY 09/01/20 01/07/21 amLODIPine [Norvasc] 5 mg DAILY 09/01/20 01/07/21 Amoxicillin 500 mg PO TID #20 cap 01/07/21 Oxycodone HCl/Acetaminophen 1 each PO Q8H PRN #10 tablet 01/07/21 [Percocet 5-325 mg Tablet] Ticagrelor [Brilinta] 60 mg PO DAILY 01/07/21 01/07/21 Cetirizine HCl/Pseudoephedrine 1 each PO BID PRN #30 ea 01/11/21 [Zyrtec-D Tablet] HYDROcod/ACETAM 5/325 [[place] 5/325] 1 - 2 ea PO Q6H PRN #10 tablet 01/11/21 predniSONE [Deltasone] 40 mg PO DAILY #10 tablet 01/11/21 - Allergies Allergies/Adverse Reactions: Allergies Allergy/AdvReac Type Severity Reaction Status Date / Time atorvastatin [From Lipitor] Allergy Unknown Verified 01/11/21 12:14 testosterone [From Androderm] Allergy Unknown Verified 01/11/21 12:14 - Social History Does the pt smoke?: No Smoking Status: Never smoker Does the pt drink ETOH?: Yes Does the pt have substance abuse?: No - Immunizations Immunizations are current?: Yes - POLST Patient has POLST: No PD ED PE NORMAL - Vitals Vital signs reviewed: Yes - General General: Alert and oriented X 3, No acute distress, Well developed/nourished - HEENT HEENT: PERRL, Ears normal (normal TM B, Normal canal. No mastoid tenderness), Moist mucous membranes, Pharynx benign, Other (mild posterior oropharyngeal erythema without tonsillar exudates) - Neck Neck: Supple, no meningeal sign, No adenopathy - Cardiac Cardiac: RRR, Strong equal pulses - Respiratory Respiratory: No respiratory distress, Clear bilaterally - Abdomen Abdomen: Soft - Back Back: No CVA TTP, No spinal TTP - Derm Derm: Warm and dry - Extremities Extremities: No edema - Neuro Neuro: Alert and oriented X 3 - Psych Psych: Normal mood, Normal affect Results - Vitals Vitals: Vital Signs - 24 hr 01/11/21 12:11 Temperature 36.4 C L Heart Rate 60 Respiratory 16 Rate Blood Pressure 128/80 O2 Saturation 96 Oxygen O2 Source Room air PD MEDICAL DECISION MAKING - ED course Complexity details: reviewed old records, considered differential, d/w patient, d/w family ED course: Patient with what appears to be a viral pharyngitis. He is well-appearing, nontoxic. Afebrile. He is already on amoxicillin for ear infection which appears to have cleared. We will have him finish the course. He is likely having pain from eustachian tube dysfunction. We will place him on steroids and decongestants for this. No mastoiditis, no retropharyngeal or peritonsillar abscess. Patient and family counseled regarding signs and symptoms for which I believe and urgent re-evaluation would be necessary. Patient with good understanding of and agreement to plan and is comfortable going home at this time This document was made in part using voice recognition software. While efforts are made to proofread this document, sound alike and grammatical errors may occur. Departure - Departure Disposition: 01 Home, Self Care Clinical Impression: Viral URI Condition: Good Instructions: ED Viral Syndrome Follow-Up: Bismark Marin MD [Primary Care Provider] - Within 1 week Prescriptions: predniSONE [Deltasone] 40 mg PO DAILY #10 tablet HYDROcod/ACETAM 5/325 [[place] 5/325] 1 - 2 ea PO Q6H PRN #10 tablet PRN Reason: Pain Cetirizine HCl/Pseudoephedrine [Zyrtec-D Tablet] 1 each PO BID PRN #30 ea PRN Reason: nasal congestion Comments: Follow-up with your doctor for repeat evaluation. This should improve with steroids and decongestants. The decongestants may temporarily raise his blood pressure, but this is normally mild and not a reason to stop the medications. Do not drink alcohol or drive while on narcotic pain medicine. Note that many narcotic pain relievers also contain tylenol/acetaminophen. Please ensure that your total dose of acetaminophen from all sources does not e xceed 3 grams (3000mg) per day. You may constipated on this medication, take a stool softener such as "Colace" twice a day while you are on it. Also recommend a amtn-agm-axkxoig laxative such as senna or MiraLAX any day that you do not have a bowel movement. If you received narcotic pain medication in the emergency department, do not drive or operate machinery for the next 24 hours.
[2021-01-11 14:13] VITALS: BP 137/78
== END 2021-01-11 14:29 | disposition home or self-care (01) ==
LOC: ED 12:00
DX: J06.9 Acute upper respiratory infection, unspecified (principal); H92.01 Otalgia, right ear; I10 Essential (primary) hypertension; Z79.82 Long term (current) use of aspirin
CPT/HCPCS: 99283; 99284; A9270

== ENCOUNTER 2021-11-21 11:15 | Outpatient (CLI) | payer MEDICARE, BC ==
[2021-11-21 15:33] LABS: BASOPHILS # (AUTO) 0.1 10^3/uL (0.0-0.1); BASOPHILS % (AUTO) 1.1 %; EOSINOPHILS # (AUTO) 0.1 10^3/uL (0.0-0.7); EOSINOPHILS % (AUTO) 1.2 %; HCT - HEMATOCRIT 51.6 % (42.0-52.0); HGB - HEMOGLOBIN 16.9 g/dL (14.0-18.0); LYMPHOCYTES # (AUTO) 2.8 10^3/uL (1.5-3.5); LYMPHOCYTES % (AUTO) 37.6 %; MEAN CORPUSCULAR HEMOGLOBIN 30.1 pg (27.0-31.0); MEAN CORPUSCULAR HGB CONC 32.8 g/dL (32.0-36.0); MEAN CORPUSCULAR VOLUME 91.8 fL (80.0-94.0); MEAN PLATELET VOLUME 11.3 fL (7.4-11.4); MONOCYTES # (AUTO) 0.6 10^3/uL (0.0-1.0); MONOCYTES % (AUTO) 8.1 %; NEUTROPHILS # (AUTO) 3.8 10^3/uL (1.5-6.6); NEUTROPHILS % (AUTO) 51.7 %; PLT - PLATELET COUNT 182 10^3/uL (130-450); RED BLOOD COUNT 5.62 10^6/uL (4.70-6.10); RED CELL DISTRIBUTION WIDTH 14.1 % (12.0-15.0); WHITE BLOOD COUNT 7.4 x10^3/uL (4.8-10.8)
[2021-11-21 15:49] LABS: ALBUMIN 3.6 g/dL (3.2-5.5); ALBUMIN/GLOBULIN RATIO 1.4 (1.0-2.2); ALKALINE PHOSPHATASE 61 IU/L (42-121); ALT ALANINE AMINOTRANSFERASE < 10 IU/L (10-60); AST ASPARTATE AMINOTRANSFERASE 14 IU/L (10-42); BUN - BLOOD UREA NITROGEN 17 mg/dL (6-20); CALCIUM 8.9 mg/dL (8.5-10.3); CARBON DIOXIDE - CO2 27 mmol/L (21-32); CHLORIDE 103 mmol/L (101-111); CHOL/HDL RATIO 3.4 (<5.0); CHOLESTEROL 195 mg/dL; CREATININE 1.1 mg/dL (0.6-1.2); GFR - MDRD 64 (>89); GLUCOSE 87 mg/dL (70-100); HDL CHOLESTEROL 58 mg/dL; LDL CHOLESTEROL,CALCULATED 116 mg/dL; POTASSIUM 4.2 mmol/L (3.5-5.0); SODIUM 139 mmol/L (135-145); TOTAL PROTEIN 6.1 g/dL (6.7-8.2); TRIGLYCERIDES 103 mg/dL; VLDL CHOLESTEROL 21 mg/dL
[2021-11-21 15:59] LABS: THYROID STIMULATING HORMONE 1.62 uIU/mL (0.34-5.60)
== END 2021-11-21 11:16 | disposition home or self-care (01) ==
LOC: LAB.S 11:15
PROVIDERS: ATTEND Family Medicine
DX: I11.0 Hypertensive heart disease with heart failure (principal); M54.50 Low back pain, unspecified; I50.31 Acute diastolic (congestive) heart failure; R73.9 Hyperglycemia, unspecified; Z79.899 Other long term (current) drug therapy; G25.81 Restless legs syndrome
CPT/HCPCS: 36415; 80053; 80061; 82306; 82607; 83721; 84443; 85025

== ENCOUNTER 2022-09-13 14:46 | Outpatient (CLI) | payer MEDICARE, BC | END 2022-09-13 14:47 | disposition critical access hospital (66) | LOC: EMS 14:46 | DX: S00.83XA Contusion of other part of head, initial encounter (principal); R04.0 Epistaxis; S51.011A Laceration without foreign body of right elbow, initial encounter; S81.011A Laceration without foreign body, right knee, initial encounter; W18.30XA Fall on same level, unspecified, initial encounter; W22.8XXA Striking against or struck by other objects, initial encounter; Y92.002 Bathroom of unspecified non-institutional (private) residence as the place of occurrence of the external cause | CPT/HCPCS: A0425; A0429 ==

== ENCOUNTER 2022-09-13 15:20 | Emergency (ER) | payer MEDICARE, BC ==
--- NOTE | 2022-09-13 15:51 | ED Physician Documentation ---
History of Present Illness - Stated complaint Stated Complaint: No acute facial bone or nasal bone fracture. Orbital verdugo are intact. Bilateral paranasal sinuses fairly well aerated. Bilateral orbital globes are intact - Additonal information Additional information: 82-year-old male presents to the emergency department for evaluation of an unwitnessed syncopal episode. Reportedly was in his bathroom and fainted. He struck his right face on the corner of the toilet. He denies loss of consciousness but is amnesic to the events. There may also be an underlying history of dementia. Per EMS and law enforcement on the scene patient and his live in a hoarding situation. They are making an APS referral. History is limited from the patient as he does not remember the events but he denies pain anywhere with the exception of his right elbow and right knee He is not anticoagulated. He does however present as a modified trauma given the amnesia to the events Review of Systems Unable to obtain: Confused Constitutional: denies: Fever, Chills Nose: reports: Reviewed and negative Throat: reports: Reviewed and negative PD PAST MEDICAL HISTORY - Past Medical History Cardiovascular: Hypertension, High cholesterol, Coronary artery disease, [place] Respiratory: None Neuro: None Endocrine/Autoimmune: None GI: None : None HEENT: None Psych: None Musculoskeletal: None Derm: None - Past Surgical History Past Surgical History: Yes General: Cholecystectomy Cardiovascular: Coronary stent - Present Medications Home Medications: Ambulatory Orders Medication Instructions Recorded Confirmed Multivitamin [Multivitamins] 1 tab PO DAILY 08/27/14 01/07/21 Rosuvastatin Calcium [Crestor] 10 mg PO DAILY 08/27/14 01/07/21 Isosorbide Mononitrate [Isosorbide 60 mg PO BID 03/11/15 01/07/21 Mononitrate ER] rOPINIRole [Requip] 0.25 mg PO TID PRN 12/18/15 01/07/21 Cholecalciferol [Vitamin D3] 5,000 unit ORAL DAILY 06/16/17 01/07/21 Dutasteride/Tamsulosin HCl 1 each PO DAILY 06/16/17 01/07/21 [Dutasteride-Tamsulosin 0.5-0.4] Vitamin B Complex 1 each PO DAILY 06/16/17 01/07/21 carvediloL [Coreg] 12.5 mg PO BID 06/16/17 01/07/21 Aspirin 325 mg PO DAILY 04/29/19 09/01/20 Furosemide [Lasix] 40 mg PO DAILY 04/29/19 01/07/21 Losartan Potassium 25 mg PO DAILY 04/29/19 01/07/21 Celecoxib [Celebrex] 200 mg DAILY 09/01/20 01/07/21 amLODIPine [Norvasc] 5 mg DAILY 09/01/20 01/07/21 Amoxicillin 500 mg PO TID #20 cap 01/07/21 Oxycodone HCl/Acetaminophen 1 each PO Q8H PRN #10 tablet 01/07/21 [Percocet 5-325 mg Tablet] Ticagrelor [Brilinta] 60 mg PO DAILY 01/07/21 01/07/21 Cetirizine HCl/Pseudoephedrine 1 each PO BID PRN #30 ea 01/11/21 [Zyrtec-D Tablet] HYDROcod/ACETAM 5/325 [Fenton 5/325] 1 - 2 ea PO Q6H PRN #10 tablet 01/11/21 predniSONE [Deltasone] 40 mg PO DAILY #10 tablet 01/11/21 - Allergies Allergies/Adverse Reactions: Allergies Allergy/AdvReac Type Severity Reaction Status Date / Time atorvastatin [From Lipitor] Allergy Unknown Verified 01/11/21 12:14 testosterone [From Androderm] Allergy Unknown Verified 01/11/21 12:14 - Social History Does the pt smoke?: No Smoking Status: Never smoker Does the pt drink ETOH?: Yes Does the pt have substance abuse?: No - Immunizations Immunizations are current?: Yes - POLST Patient has POLST: No PD ED PE EXPANDED - General General: Alert, Disheveled, poorly kept (Smells heavily of urine) - Cardiac Cardiac: Regular Rate, Radial strong equal, Pedal strong equal, Cap refill < 2 sec, Other (Purple mottling of all extremities consistent with a Raynaud's pattern) - Respiratory Respiratory: Clear to ausultation svitlana. No: Distress, Labored - Abdomen Abdomen: Normal Bowel sounds. No: Tender to palpation - Derm Derm: Normal color, Warm and dry, Abrasion (s) (Superficial simple abrasion to the olecranon of the right elbow and patella of the right knee. No deformity.) - Extremities Extremities: Right elbow (Superficial abrasion of the right olecranon. Normal flexion extension of the elbow.), Right knee (Superficial abrasion of the patella. Normal flexion extension of the knee. No laxity.) - Neuro Neuro: Confused, Right face (Large hematoma underneath the right eye with tenderness. Extraocular movements intact. PERRLA. No nystagmus or entrapment), CNII-XII intact - GCS Eye Opening: Spontaneous Motor: Obeys Commands Verbal: Confused Total: 14 Results - Vitals Vitals: Vital Signs - 24 hr 09/13/22 09/13/22 15:22 17:49 Temperature 36.2 C L Heart Rate 65 84 Respiratory 16 16 Rate Blood Pressure 157/78 H 144/103 H O2 Saturation 100 97 Oxygen O2 Source Room air - EKG (time done) 1611 Rate: Rate (enter#) (60) Rhythm: NSR Intervals: LBBB Compare to prior EKG: Unchanged from prior EKG Computer interpretation: Agree with computer - Labs Labs: Laboratory Tests 09/13/22 09/13/22 16:44 16:44 WBC 10.5 RBC 4.53 L Hgb 13.4 L Hct 40.8 L MCV 90.1 MCH 29.6 MCHC 32.8 RDW 13.9 Plt Count 258 MPV 10.5 Neut # (Auto) 8.7 H Lymph # (Auto) 1.0 L [place] # (Auto) 0.7 Eos # (Auto) 0.1 Baso # (Auto) 0.1 Absolute Nucleated RBC 0.00 Nucleated RBC % 0.0 Sodium 133 L Potassium 3.8 Chloride 103 Carbon Dioxide 22 Anion Gap 8.0 BUN 17 Creatinine 0.8 Estimated GFR (MDRD) 93 Glucose 125 H Calcium 8.3 L Total Bilirubin 0.5 AST 16 ALT < 10 L Alkaline Phosphatase 112 Total Protein 5.2 L Albumin 2.8 L Globulin 2.4 Albumin/Globulin Ratio 1.2 Lipase 61 H - Rads (name of study) right knee Radiology: Final report received (No osseous abnormality) right elbow Radiology: Final report received (No acute fracture) cervical CT Radiology: Final report received (No acute cervical spine fracture or dislocation) head CT Radiology: Final report received (No acute intracranial abnormalities.) max fac CT Radiology: Final report received (No acute facial bone or nasal bone fracture. Orbital verdugo are intact. Bilateral paranasal sinuses fairly well aerated. Bilateral orbital globes are intact) PD Medical Decision Making - ED course Complexity details: reviewed results, considered differential, d/w patient, d/w family ED course: 82-year-old male presents emergency department after an unwitnessed ground-level fall when he was going to the bathroom today. He was amnesic to the events however this is difficult to discern as he does have dementia. He presents disheveled. Per EMS Nate Frye on scene is making an APS report due to the poor living conditions. Presentation the patient has a right elbow and right knee contusion. X-ray imaging was negative. I did also proceed to do a CT of the head neck And maxillofacial series with no acute traumatic injury seen. We did obtain a CBC and electrolytes today that showed no acute worrisome derangements. With nursing staff the patient was able to get up and ambulate with a walker. I did assess his gait and its a slow shuffled but unassisted gait. I also spoke on the phone with the patient's Idalmis. She is able to corroborate the history and indicates that he typically has a difficult time walking but does not like using his assistive devices. Though she would like him to remain in the hospital overnight there is no reasonable reason for him to remain hospitalized. I discussed with her her frustration with his dementia and advised close follow-up with PCP as a likely need to consider adult living or memory care unit moving forward. Emergent return precautions were discussed. Departure - Departure Disposition: 01 Home, Self Care Clinical Impression: Ground-level fall Dementia Qualifiers: Dementia type: unspecified type Dementia severity: moderate Dementia behavioral or psychological symptom: without behavioral, psychotic, or mood disturbance or anxiety Qualified Code(s): F03.B0 - Unspecified dementia, moderate, without behavioral disturbance, psychotic disturbance, mood disturbance, and anxiety Facial contusion Qualifiers: Encounter type: initial encounter Qualified Code(s): S00.83XA - Contusion of other part of head, initial encounter Condition: Stable Record reviewed to determine appropriate education?: Yes Comments: Kehinde came to the emergency department after a fall at home today. He has a large bruise under his right eye however the CTs of his head neck and spine do not show any broken bones or bleeding within his head. The x-ray of his elbow and right knee are also normal. There was no worrisome findings on his labs today. It is very important that Kehinde always use his walking aids at home when walking. Because his dementia is starting to get worse it is very important you follow- up with his primary care doctor. You may need to discuss memory shelter or adult family home for him moving forward.
--- NOTE | 2022-09-13 15:53 | XRAY Report ---
PROCEDURE: Chest 1 View X-Ray INDICATIONS: syncope TECHNIQUE: One view of the chest was acquired. COMPARISON: None. FINDINGS: Surgical changes and devices: None. Lungs and pleura: No pleural effusions or pneumothorax. Lungs are clear. Mediastinum: Mediastinal contours appear normal. Heart size is normal. Bones and chest wall: No suspicious bony lesions. Overlying soft tissues appear unremarkable. IMPRESSION: No acute cardiopulmonary pathology. Reviewed by: Jarvis Mayfield MD on 09/13/2022 3:52 PM [facility] Approved by: Jarvis Mayfield MD on 09/13/2022 3:52 PM [facility] Station ID: [id number]
--- NOTE | 2022-09-13 16:12 | CT Report ---
PROCEDURE: MAXILLOFACIAL WO INDICATIONS: syncope; right orbital swelling TECHNIQUE: Noncontrast 1.5 mm thick axial images acquired from the mandible through the frontal sinuses, with co chandler and sagittal reformatting. For radiation dose reduction, the following was used: automated ex posure control, adjustment of mA and/or kV according to patient size. COMPARISON: None. FINDINGS: Image quality: Excellent. Bones and teeth: Orbital verdugo are intact. Sinus verdugo show no fracture or deformity. Nasal bones and septum are intact. Visualized portions of the mandible demonstrate no fractures or subluxation. Zygomatic arches are intact. Pterygoid plates are intact. Visualized portions of the skull base an d auditory canals are intact. Sinuses: Paranasal sinuses are aerated, without fluid levels, mucosal thickening, or mucoceles. Mas toid air cells are aerated. Soft tissues: No edema, masses, or fluid collections. No enlarged lymph nodes. No soft tissue lace rations or debris. Vascular: Visualized vascular structures appear normal in the absence of contrast. Bony vascular fo ramina and canals are intact. IMPRESSION: 1. No acute facial bone or nasal bone fracture. Orbital verdugo are intact. 2. Bilateral paranasal sinuses are fairly well aerated. Bilateral orbital globes are intact. Reviewed by: Jarvis Mayfield MD on 09/13/2022 4:11 PM PST Approved by: Jarvis Mayfield MD on 09/13/2022 4:11 PM PST Station ID: [id number]
--- NOTE | 2022-09-13 16:14 | CT Report ---
PROCEDURE: HEAD WO INDICATIONS: syncope with amnesia TECHNIQUE: Noncontrast 4.5 mm thick angled axial sections acquired from the foramen magnum to the vertex. For r adiation dose reduction, the following was used: automated exposure control, adjustment of mA and/or kV according to patient size. COMPARISON: 01/07/2021 and 03/09/2020 FINDINGS: Image quality: Excellent. CSF spaces: Basal cisterns are patent. No extra-axial fluid collections. The ventricles are symmet zenia in size and shape. Brain: No intracranial bleeds or masses. There is cerebral volume loss for age, with resultant vent ricular and sulcal prominence. There are periventricular and deep white matter chronic small vessel ischemic changes. There is intracranial internal carotid artery atherosclerosis. Skull and face: Calvarium and visualized facial bones appear intact, without suspicious lesions. Sinuses: Visualized sinuses and mastoids are clear. IMPRESSION: No CT evidence of acute intracranial abnormalities. No significant changes from previous studies. Reviewed by: Jarvis Mayfield MD on 09/13/2022 4:13 PM PST Approved by: Jarvis Mayfield MD on 09/13/2022 4:13 PM PST Station ID: [id number]
--- NOTE | 2022-09-13 16:15 | CT Report ---
PROCEDURE: CERVICAL SPINE WO INDICATIONS: syncope TECHNIQUE: Noncontrast 3 mm thick sections acquired from the skull base to the T4 level. Sagittal and coronal r eformats were then constructed. For radiation dose reduction, the following was used: automated exp osure control, adjustment of mA and/or kV according to patient size. COMPARISON: None. FINDINGS: Image quality: Excellent. Bones: No fractures or dislocations. Straightening of normal cervical lordosis is seen. Degenerativ e endplate changes and bilateral facet hypertrophic changes are noted throughout cervical spine with mild central canal stenosis and left worse than right bilateral neural foraminal seen. Visualized sup erior ribs are intact. Soft tissues: Prevertebral soft tissues are normal in thickness. No paravertebral hematomas. No ap ical pneumothoraces. IMPRESSION: 1. No acute cervical spine fracture or dislocation. 2. Degenerative disc disease throughout cervical spine. Reviewed by: Jarvis Mayfield MD on 09/13/2022 4:14 PM PST Approved by: Jarvis Mayfield MD on 09/13/2022 4:14 PM PST Station ID: [id number]
--- NOTE | 2022-09-13 16:45 | XRAY Report ---
PROCEDURE: Elbow 3 View RT INDICATIONS: pain/abrasion after fall TECHNIQUE: 3 views of the elbow were acquired. COMPARISON: None FINDINGS: Bones: No acute fractures or dislocations. Small well-corticated ossicles. No suspicious bony lesio ns. Soft tissues: No posterior elbow joint effusion. No suspicious soft tissue calcifications. IMPRESSION: No acute osseous abnormality. Small ossicles which are likely degenerative in nature or due to prior injury. Reviewed by: Jb Mcmillan MD on 09/13/2022 4:44 PM PST Approved by: Jb Mcmillan MD on 09/13/2022 4:44 PM PST Station ID: [id number]
--- NOTE | 2022-09-13 16:46 | XRAY Report ---
PROCEDURE: Knee 3 View RT INDICATIONS: abrasion after fall TECHNIQUE: 3 views of the right knee(s) were acquired. COMPARISON: None. FINDINGS: Bones: No fractures or dislocations. Mild degenerative changes. No suspicious bony lesions. Soft tissues: Trace joint effusion. No suspicious soft tissue calcifications. Arterial vascular ca lcifications. IMPRESSION: No acute osseous abnormality. Mild right knee DJD. Reviewed by: Jb Mcmillan MD on 09/13/2022 4:45 PM PST Approved by: Jb Mcmillan MD on 09/13/2022 4:45 PM PST Station ID: [id number]
[2022-09-13 16:58] LABS: BASOPHILS # (AUTO) 0.1 10^3/uL (0.0-0.1); BASOPHILS % (AUTO) 0.5 %; EOSINOPHILS # (AUTO) 0.1 10^3/uL (0.0-0.7); EOSINOPHILS % (AUTO) 0.5 %; HCT - HEMATOCRIT 40.8 % (42.0-52.0); HGB - HEMOGLOBIN 13.4 g/dL (14.0-18.0); MEAN CORPUSCULAR HEMOGLOBIN 29.6 pg (27.0-31.0); MEAN CORPUSCULAR HGB CONC 32.8 g/dL (32.0-36.0); MEAN CORPUSCULAR VOLUME 90.1 fL (80.0-94.0); MEAN PLATELET VOLUME 10.5 fL (7.4-11.4); MONOCYTES # (AUTO) 0.7 10^3/uL (0.0-1.0); MONOCYTES % (AUTO) 6.7 %; NEUTROPHILS # (AUTO) 8.7 10^3/uL (1.5-6.6); NEUTROPHILS % (AUTO) 82.7 %; PLT - PLATELET COUNT 258 10^3/uL (130-450); RED BLOOD COUNT 4.53 10^6/uL (4.70-6.10); RED CELL DISTRIBUTION WIDTH 13.9 % (12.0-15.0); WHITE BLOOD COUNT 10.5 x10^3/uL (4.8-10.8)
[2022-09-13 17:24] LABS: ALBUMIN 2.8 g/dL (3.2-5.5); ALBUMIN/GLOBULIN RATIO 1.2 (1.0-2.2); ALKALINE PHOSPHATASE 112 IU/L (42-121); ALT ALANINE AMINOTRANSFERASE < 10 IU/L (10-60); AST ASPARTATE AMINOTRANSFERASE 16 IU/L (10-42); BILIRUBIN,TOTAL 0.5 mg/dL (0.2-1.0); BUN - BLOOD UREA NITROGEN 17 mg/dL (6-20); CALCIUM 8.3 mg/dL (8.5-10.3); CARBON DIOXIDE - CO2 22 mmol/L (21-32); CHLORIDE 103 mmol/L (101-111); CREATININE 0.8 mg/dL (0.6-1.2); GFR - MDRD 93 (>89); GLUCOSE 125 mg/dL (70-100); LIPASE 61 U/L (22-51); POTASSIUM 3.8 mmol/L (3.5-5.0); SODIUM 133 mmol/L (135-145); TOTAL PROTEIN 5.2 g/dL (6.7-8.2)
[2022-09-13 17:53] VITALS: BP 144/103
== END 2022-09-13 19:58 | disposition home or self-care (01) ==
LOC: EDUNIT# → ED 15:20
DX: S00.11XA Contusion of right eyelid and periocular area, initial encounter (principal); S50.311A Abrasion of right elbow, initial encounter; S80.211A Abrasion, right knee, initial encounter; W01.198A Fall on same level from slipping, tripping and stumbling with subsequent striking against other object, initial encounter; Y92.9 Unspecified place or not applicable; I44.7 Left bundle-branch block, unspecified; F03.B0 Unspecified dementia, moderate, without behavioral disturbance, psychotic disturbance, mood disturbance, and anxiety; I25.10 Atherosclerotic heart disease of native coronary artery without angina pectoris; I10 Essential (primary) hypertension; I25.2 Old myocardial infarction; Z95.5 Presence of coronary angioplasty implant and graft
CPT/HCPCS: 36415; 80053; 83690; 85025; 93005; 99284

== ENCOUNTER 2022-09-13 20:00 | Outpatient (CLI) | payer MEDICARE, BC | END 2022-09-13 20:01 | disposition home or self-care (01) | LOC: EMS 20:00 | PROVIDERS: ATTEND Registered Nurse | DX: F03.90 Unspecified dementia, unspecified severity, without behavioral disturbance, psychotic disturbance, mood disturbance, and anxiety (principal); R41.0 Disorientation, unspecified | CPT/HCPCS: A0425; A0428 ==

== ENCOUNTER 2022-09-25 17:40 | Outpatient (CLI) | payer MEDICARE, BC | END 2022-09-25 17:41 | disposition short-term general hospital (02) | LOC: EMS 17:40 | DX: R07.9 Chest pain, unspecified (principal) | CPT/HCPCS: A0425; A0427 ==

== ENCOUNTER 2023-05-20 18:34 | Outpatient (CLI) | payer MEDICARE, BC | END 2023-05-20 18:35 | disposition EMS.NT | LOC: EMS 18:34 | DX: R45.851 Suicidal ideations (principal); F32.A Depression, unspecified ==

== ENCOUNTER 2023-05-20 19:53 | Outpatient (CLI) | payer MEDICARE, BC | END 2023-05-20 19:54 | disposition other institution (70) | LOC: EMS 19:53 | DX: R45.851 Suicidal ideations (principal); F32.A Depression, unspecified | CPT/HCPCS: A0425; A0429 ==

== ENCOUNTER 2023-05-20 19:58 | Emergency (ER) | payer MEDICARE, BC ==
[2023-05-20] MEDS ORDERED: SODIUM CHLORIDE 0.9% 1,000 ML IV STA (20:08)
[2023-05-20] MEDS ORDERED: OLANZapine ODT 5 MG TABLET TL ONE (20:09)
[2023-05-20 20:17] VITALS: BP 122/80; O2SAT 96
--- NOTE | 2023-05-20 20:25 | ED Physician Documentation ---
History of Present Illness - Stated complaint Stated Complaint: AMS - Chief complaint Chief Complaint: MHE - History obtained from History obtained from: Patient, EMS - Additonal information Additional information: The patient comes to the emergency department chief complaint of behavioral disturbance all day at [facility]. The patient is at [facility] due to dementia and has been on hospice for unclear reasons. Apparently, he has been wandering around the parking lot, "looking for people to kill" and has refused to take his medicines today. The staff at [facility] decided they could not take care of him but according to hospice nurse Lea, did not reach out to hospice at all. Lea reports that the first call she see received was when the physical metallurgist were at the bedside. It is reported that hospice was revoked in order to send the patient here, though it is not clear Who assumed this authority, as POA has been unable to be reached. No attempts were made to sedate the patient per hospice as they did not find out in time the patient is having a behavioral disturbance. The patient does not recall any of this and states all he remembers is sitting and playing bingo with some of the other people at [facility]. [place] the last time he saw his family. No other complaints at this time. He states he does not have any physical complaints. He states he does not like to take his pills. Medics report that the patient has been calm and cooperative in route and was watching TV calmly when they arrived. PD PAST MEDICAL HISTORY - Past Medical History Cardiovascular: Hypertension, High cholesterol, Coronary artery disease, [place] Respiratory: None Neuro: None Endocrine/Autoimmune: None GI: None : None HEENT: None Psych: None Musculoskeletal: None Derm: None - Past Surgical History Past Surgical History: Yes General: Cholecystectomy Cardiovascular: Coronary stent - Present Medications Home Medications: Ambulatory Orders Medication Instructions Recorded Confirmed Multivitamin [Multivitamins] 1 tab PO DAILY 08/27/14 01/07/21 Rosuvastatin Calcium [Crestor] 10 mg PO DAILY 08/27/14 01/07/21 Isosorbide Mononitrate [Isosorbide 60 mg PO BID 03/11/15 01/07/21 Mononitrate ER] rOPINIRole [Requip] 0.25 mg PO TID PRN 12/18/15 01/07/21 Cholecalciferol [Vitamin D3] 5,000 unit ORAL DAILY 06/16/17 01/07/21 Dutasteride/Tamsulosin HCl 1 each PO DAILY 06/16/17 01/07/21 [Dutasteride-Tamsulosin 0.5-0.4] Vitamin B Complex 1 each PO DAILY 06/16/17 01/07/21 carvediloL [Coreg] 12.5 mg PO BID 06/16/17 01/07/21 Aspirin 325 mg PO DAILY 04/29/19 09/01/20 Furosemide [Lasix] 40 mg PO DAILY 04/29/19 01/07/21 Losartan Potassium 25 mg PO DAILY 04/29/19 01/07/21 Celecoxib [Celebrex] 200 mg DAILY 09/01/20 01/07/21 amLODIPine [Norvasc] 5 mg DAILY 09/01/20 01/07/21 Amoxicillin 500 mg PO TID #20 cap 01/07/21 Oxycodone HCl/Acetaminophen 1 each PO Q8H PRN #10 tablet 01/07/21 [Percocet 5-325 mg Tablet] Ticagrelor [Brilinta] 60 mg PO DAILY 01/07/21 01/07/21 Cetirizine HCl/Pseudoephedrine 1 each PO BID PRN #30 ea 01/11/21 [Zyrtec-D Tablet] HYDROcod/ACETAM 5/325 [Shirley 5/325] 1 - 2 ea PO Q6H PRN #10 tablet 01/11/21 predniSONE [Deltasone] 40 mg PO DAILY #10 tablet 01/11/21 - Allergies Allergies/Adverse Reactions: Allergies Allergy/AdvReac Type Severity Reaction Status Date / Time atorvastatin [From Lipitor] Allergy Unknown Verified 05/20/23 20:08 testosterone [From Androderm] Allergy Unknown Verified 05/20/23 20:08 - Social History Does the pt smoke?: No Smoking Status: Never smoker Does the pt drink ETOH?: Yes Does the pt have substance abuse?: No - Immunizations Immunizations are current?: Yes - POLST Patient has POLST: No PD ED PE NORMAL - Vitals Vital signs reviewed: Yes - General General: No acute distress, Well developed/nourished, Other (The patient is alert and answers questions mostly appropriately.) - HEENT HEENT: Atraumatic, PERRL, EOMI, Moist mucous membranes - Neck Neck: Supple, no meningeal sign - Cardiac Cardiac: RRR, No murmur - Respiratory Respiratory: No respiratory distress, Clear bilaterally - Abdomen Abdomen: Soft, Non tender, Non distended - Derm Derm: Normal color, Warm and dry, No rash - Extremities Extremities: No deformity - Neuro Neuro: Other (Alert, moves all 4 extremities without difficulty, grossly intact.) - Psych Psych: Normal mood (The patient is calm and cooperative.), Normal affect Results - Vitals Vitals: Vital Signs - 24 hr 05/20/23 20:04 Temperature 36.2 C L Heart Rate 65 Respiratory 16 Rate Blood Pressure 122/80 O2 Saturation 96 Oxygen O2 Source Room air - Labs Labs: Laboratory Tests 05/20/23 05/20/23 05/20/23 20:26 20:34 20:34 WBC 8.5 RBC 5.89 Hgb 10.8 L Hct 40.2 L MCV 68.3 L MCH 18.3 L MCHC 26.9 L RDW 21.7 H Plt Count 253 MPV 10.5 Neut # (Auto) 5.2 Lymph # (Auto) 2.3 [place] # (Auto) 0.8 Eos # (Auto) 0.1 Baso # (Auto) 0.1 Absolute Nucleated RBC 0.00 Nucleated RBC % 0.0 Manual Slide Review Indicated Platelet Estimate NORMAL (130-450,000) Platelet Morphology NORMAL APPEARANCE RBC Morph Micro Appear 2+ MICROCYTOSIS Sodium 137 Potassium 4.3 Chloride 105 Carbon Dioxide 26 Anion Gap 6.0 BUN 20 Creatinine 0.9 Estimated GFR (MDRD) 81 L Glucose 97 Calcium 9.5 Total Bilirubin 0.5 AST 11 ALT 3 L Alkaline Phosphatase 69 Total Protein 6.8 Albumin 4.1 Globulin 2.7 Albumin/Globulin Ratio 1.5 Lipase 56 Urine Color Urine Clarity Urine pH Ur Specific [place] Urine Protein Urine Glucose (UA) Urine Ketones Urine Occult Blood Urine Nitrite Urine Bilirubin Urine Urobilinogen Ur Leukocyte Esterase Ur Microscopic Review Urine Culture Comments Nasal Adenovirus (PCR) NOT DETECTED Nasal B. parapertussis DNA (PCR) NOT DETECTED Nasal Coronavir 229E PCR NOT DETECTED Nasal Coronavir HKU1 PCR NOT DETECTED Nasal Coronavir NL63 PCR NOT DETECTED Nasal Coronavir OC43 PCR NOT DETECTED Nasal Enterovir/Rhinovir PCR NOT DETECTED Nasal Influenza B PCR NOT DETECTED Nasal Influenza A PCR NOT DETECTED Nasal Parainfluen 1 PCR NOT DETECTED Nasal Parainfluen 2 PCR NOT DETECTED Nasal Parainfluen 3 PCR NOT DETECTED Nasal Parainfluen 4 PCR NOT DETECTED Nasal RSV (PCR) NOT DETECTED Nasal B.pertussis DNA PCR NOT DETECTED Nasal C.pneumoniae (PCR) NOT DETECTED Art Human Metapneumo PCR NOT DETECTED Nasal M.pneumoniae (PCR) NOT DETECTED Nasal SARS-CoV-2 (PCR) NOT DETECTED 05/20/23 20:56 WBC RBC Hgb Hct MCV MCH MCHC RDW Plt Count MPV Neut # (Auto) Lymph # (Auto) [place] # (Auto) Eos # (Auto) Baso # (Auto) Absolute Nucleated RBC Nucleated RBC % Manual Slide Review Platelet Estimate Platelet Morphology RBC Morph Micro Appear Sodium Potassium Chloride Carbon Dioxide Anion Gap BUN Creatinine Estimated GFR (MDRD) Glucose Calcium Total Bilirubin AST ALT Alkaline Phosphatase Total Protein Albumin Globulin Albumin/Globulin Ratio Lipase Urine Color YELLOW Urine Clarity CLEAR Urine pH 5.5 Ur Specific [place] 1.025 Urine Protein NEGATIVE Urine Glucose (UA) NEGATIVE Urine Ketones NEGATIVE Urine Occult Blood NEGATIVE Urine Nitrite NEGATIVE Urine Bilirubin NEGATIVE Urine Urobilinogen 0.2 (NORMAL) Ur Leukocyte Esterase NEGATIVE Ur Microscopic Review NOT INDICATED Urine Culture Comments NOT INDICATED Nasal Adenovirus (PCR) Nasal B. parapertussis DNA (PCR) Nasal Coronavir 229E PCR Nasal Coronavir HKU1 PCR Nasal Coronavir NL63 PCR Nasal Coronavir OC43 PCR Nasal Enterovir/Rhinovir PCR Nasal Influenza B PCR Nasal Influenza A PCR Nasal Parainfluen 1 PCR Nasal Parainfluen 2 PCR Nasal Parainfluen 3 PCR Nasal Parainfluen 4 PCR Nasal RSV (PCR) Nasal B.pertussis DNA PCR Nasal C.pneumoniae (PCR) Art Human Metapneumo PCR Nasal M.pneumoniae (PCR) Nasal SARS-CoV-2 (PCR) PD Medical Decision Making - ED course Complexity details: reviewed results, re-evaluated patient, considered differential, d/w patient ED course: Patient was evaluated here in the emergency department with medical clearance labs including CBC, ER abdominal panel, UA, and respiratory PCR, and given a dose of Zyprexa. The patient's work-up was entirely negative other than mild anemia which is noncontributory to the patient's symptoms tonight. The patient took his Zyprexa readily and was calm and cooperative throughout his entire stay in the emergency department. His vital signs were stable and he did not display any evidence of acute neurologic compromise here. As such, the patient was deemed stable for discharge back to [facility]. I have spoken with Lea from hospice as well to discuss a plan for the patient getting back on hospice and nursing staff has spoken repeatedly with [facility] staff who have accepted the pat darion. Departure - Departure Disposition: 01 Home, Self Care Clinical Impression: Dementia with behavioral disturbance Condition: Stable Instructions: ED Dementia Caregiver Support Comments: Mr. Mie has been evaluated with an appropriate panel of tests, based on his reported symptoms outside of the emergency department, as well as the consideration of his stable vital signs and lack of acute neurologic findings. His work-up has been reassuring in terms of any serious or emergent condition, or any other medical condition that would be contributing to his behavior tonight. He has been hydrated with IV fluids and has readily taken Zyprexa without any problem here and has been calm and cooperative throughout his entire stay. As such, he is stable for discharge. If you feel that his current medication regimen is not adequate to control his behavioral outbursts, then you may speak with his doctor to have his medications reevaluated to see if anything needs to be added, subtracted, or dose adjusted. Forms: PCP List
[2023-05-20 20:44] LABS: BASOPHILS # (AUTO) 0.1 10^3/uL (0.0-0.1); BASOPHILS % (AUTO) 0.9 %; EOSINOPHILS # (AUTO) 0.1 10^3/uL (0.0-0.7); EOSINOPHILS % (AUTO) 1.5 %; HCT - HEMATOCRIT 40.2 % (42.0-52.0); HGB - HEMOGLOBIN 10.8 g/dL (14.0-18.0); LYMPHOCYTES # (AUTO) 2.3 10^3/uL (1.5-3.5); LYMPHOCYTES % (AUTO) 26.6 %; MEAN CORPUSCULAR HEMOGLOBIN 18.3 pg (27.0-31.0); MEAN CORPUSCULAR HGB CONC 26.9 g/dL (32.0-36.0); MEAN CORPUSCULAR VOLUME 68.3 fL (80.0-94.0); MEAN PLATELET VOLUME 10.5 fL (7.4-11.4); MONOCYTES # (AUTO) 0.8 10^3/uL (0.0-1.0); MONOCYTES % (AUTO) 9.3 %; NEUTROPHILS # (AUTO) 5.2 10^3/uL (1.5-6.6); NEUTROPHILS % (AUTO) 61.5 %; PLT - PLATELET COUNT 253 10^3/uL (130-450); RED BLOOD COUNT 5.89 10^6/uL (4.70-6.10); RED CELL DISTRIBUTION WIDTH 21.7 % (12.0-15.0); WHITE BLOOD COUNT 8.5 x10^3/uL (4.8-10.8)
[2023-05-20 20:51] LABS: ALBUMIN 4.1 g/dL (3.2-5.5); ALBUMIN/GLOBULIN RATIO 1.5 (1.0-2.2); BILIRUBIN,TOTAL 0.5 mg/dL (0.2-1.0); CALCIUM 9.5 mg/dL (8.5-10.3); CREATININE 0.9 mg/dL (0.6-1.3); POTASSIUM 4.3 mmol/L (3.5-4.5); TOTAL PROTEIN 6.8 g/dL (6.4-8.9)
[2023-05-20 20:53] LABS: SLIDE REVIEW? Indicated
[2023-05-20 21:11] LABS: BILIRUBIN,URINE NEGATIVE (NEGATIVE); GLUCOSE, URINE (UA) NEGATIVE (NEGATIVE); KETONES,URINE (UA) NEGATIVE (NEGATIVE); LEUKOCYTE ESTERASE, URINE NEGATIVE (NEGATIVE); NITRITE,URINE NEGATIVE (NEGATIVE); OCCULT BLOOD,URINE NEGATIVE (NEGATIVE); PH,URINE 5.5 PH (5.0-7.5); PROTEIN,URINE NEGATIVE (NEGATIVE); UROBILINOGEN,URINE 0.2 (NORMAL) E.U./dL (NORMAL)
[2023-05-20 21:13] LABS: CLARITY,URINE CLEAR (CLEAR)
[2023-05-20 21:35] LABS: B. PARAPERTUSSIS- RESP PCR PAN NOT DETECTED; B. PERTUSSIS- RESP PCR PANEL NOT DETECTED; C. PNEUMONIAE- RESP PCR PANEL NOT DETECTED; CORONAVIRUS 229E-RESP PCR NOT DETECTED; CORONAVIRUS HKU1-RESP PCR NOT DETECTED; CORONAVIRUS NL63-RESP PCR NOT DETECTED; CORONAVIRUS OC43-RESP PCR NOT DETECTED; HUMAN METAPNEUMOVIRUS NOT DETECTED; INFLUENZA A- RESP PCR PANEL NOT DETECTED; INFLUENZA B - RESP PCR PANEL NOT DETECTED; M. PNEUMONIAE- RESP PCR PANEL NOT DETECTED; PARAINFLUENZA VIRUS 1 NOT DETECTED; PARAINFLUENZA VIRUS 2 NOT DETECTED; PARAINFLUENZA VIRUS 3 NOT DETECTED; PARAINFLUENZA VIRUS 4 NOT DETECTED; RHINOVIRUS/ENTEROVIRUS NOT DETECTED; RSV- RESP PCR PANEL NOT DETECTED; SARS-CoV-2 -RESP PCR PANEL NOT DETECTED
[2023-05-20 21:38] LABS: PLATELET ESTIMATE, MANUAL NORMAL (130-450,000) (NORMAL); PLATELET MORPHOLOGY NORMAL APPEARANCE (NORMAL)
== END 2023-05-20 22:48 | disposition home or self-care (01) ==
LOC: EDUNIT# → ED 19:58
DX: F03.918 Unspecified dementia, unspecified severity, with other behavioral disturbance (principal); I10 Essential (primary) hypertension; Z20.822 Contact with and (suspected) exposure to COVID-19
CPT/HCPCS: 36415; 80053; 81003; 83690; 85025; 87633; 99283; A9270; 81001; 87086

== ENCOUNTER 2023-05-20 22:48 | Outpatient (CLI) | payer MEDICARE, BC | END 2023-05-20 23:59 | disposition home or self-care (01) | LOC: EMS 22:48 | PROVIDERS: ATTEND Emergency Medicine | DX: F03.90 Unspecified dementia, unspecified severity, without behavioral disturbance, psychotic disturbance, mood disturbance, and anxiety (principal); R41.0 Disorientation, unspecified | CPT/HCPCS: A0425; A0428 ==

== ENCOUNTER 2023-07-23 13:48 | Outpatient (CLI) | payer MEDICARE, BC ==
[2023-07-23 14:15] LABS: BASOPHILS # (AUTO) 0.1 10^3/uL (0.0-0.1); BASOPHILS % (AUTO) 0.9 %; EOSINOPHILS # (AUTO) 0.2 10^3/uL (0.0-0.7); EOSINOPHILS % (AUTO) 1.7 %; HCT - HEMATOCRIT 40.6 % (42.0-52.0); HGB - HEMOGLOBIN 11.4 g/dL (14.0-18.0); LYMPHOCYTES # (AUTO) 2.5 10^3/uL (1.5-3.5); LYMPHOCYTES % (AUTO) 28.4 %; MEAN CORPUSCULAR HEMOGLOBIN 19.1 pg (27.0-31.0); MEAN CORPUSCULAR HGB CONC 28.1 g/dL (32.0-36.0); MEAN CORPUSCULAR VOLUME 68.1 fL (80.0-94.0); MONOCYTES # (AUTO) 0.8 10^3/uL (0.0-1.0); MONOCYTES % (AUTO) 8.7 %; NEUTROPHILS # (AUTO) 5.2 10^3/uL (1.5-6.6); PLT - PLATELET COUNT 205 10^3/uL (130-450); RED BLOOD COUNT 5.96 10^6/uL (4.70-6.10); WHITE BLOOD COUNT 8.7 x10^3/uL (4.8-10.8)
[2023-07-23 14:17] LABS: SLIDE REVIEW? Indicated
[2023-07-23 14:54] LABS: PLATELET ESTIMATE, MANUAL NORMAL (130-450,000) (NORMAL); PLATELET MORPHOLOGY NORMAL APPEARANCE (NORMAL)
[2023-07-23 14:55] LABS: WBC MORPHOLOGY (MULTIPLE) NORMAL APPEARANCE (NORMAL)
== END 2023-07-23 13:49 | disposition home or self-care (01) ==
LOC: LAB 13:48 → LAB.R 13:49
PROVIDERS: ATTEND Registered Nurse
DX: N18.9 Chronic kidney disease, unspecified (principal); I50.23 Acute on chronic systolic (congestive) heart failure
CPT/HCPCS: 36415; 80053; 85025

== ENCOUNTER 2023-08-20 13:42 | Outpatient (CLI) | payer MEDICARE, BC | END 2023-08-20 13:43 | disposition critical access hospital (66) | LOC: EMS 13:42 | DX: R53.1 Weakness (principal); R47.81 Slurred speech; R09.89 Other specified symptoms and signs involving the circulatory and respiratory systems; R00.1 Bradycardia, unspecified | CPT/HCPCS: A0425; A0429 ==

== ENCOUNTER 2023-08-20 13:47 | Emergency (ER) | payer MEDICARE, BC ==
--- NOTE | 2023-08-20 14:18 | ED Physician Documentation ---
History of Present Illness - Stated complaint Stated Complaint: AMS - Chief complaint Chief Complaint: Neuro - Additonal information Additional information: 83-year-old male presents emergency department for evaluation of left arm weakness. He is residing at [facility]. Has past medical history that includes dementia, hypertension and hyperlipidemia. Typically ambulatory with a cane or walker though sometimes he is able to be independent. His who is at the bedside said that she spoke with him yesterday and he seemed normal to her. This morning about 930 she noticed that he was not moving his left arm or leg normally. History is somewhat difficult to obtain from the patient as he is demented though he is oriented to self and place though not time. He does have a POLST which indicates DNR/comfort care measures. states he would not want heroic measures though if we can treat some illnesses and injury and keep him comfortable she would be comfortable with that. Review of Systems Unable to obtain: Dementia Neurologic: reports: Focal weakness PD PAST MEDICAL HISTORY - Past Medical History Cardiovascular: Congestive heart failure, Hypertension, High cholesterol, Coronary artery disease, [place] Respiratory: None Neuro: Dementia Endocrine/Autoimmune: None GI: GERD : Benign prostate hypertrophy, Other HEENT: None Psych: None Musculoskeletal: None Derm: None - Past Surgical History Past Surgical History: Yes General: Cholecystectomy Cardiovascular: Coronary stent - Present Medications Home Medications: Ambulatory Orders Medication Instructions Recorded Confirmed Rosuvastatin Calcium [Crestor] 20 mg PO DAILY 08/27/14 08/20/23 Acetaminophen [Tylenol] 650 mg PO Q6H PRN 08/20/23 08/20/23 Aspirin EC [Ecotrin] 81 mg PO DAILY 08/20/23 08/20/23 Aspirin [Aspirin EC] 81 mg PO DAILY #21 tab 08/20/23 Bisacodyl Supp [Dulcolax Supp] 10 mg [place] DAILY PRN 08/20/23 08/20/23 Clopidogrel Bisulfate [Plavix] 75 mg PO DAILY #30 tab 08/20/23 Metoprolol Succinate [Toprol Xl] 25 mg PO DAILY 08/20/23 08/20/23 Mineral Oil [Mineral Oil Enema] 1 ea RC DAILY PRN 08/20/23 08/20/23 Nitroglycerin [Nitrostat] 0.4 mg SL [id number] 08/20/23 08/20/23 OLANZapine [Zyprexa] 5 mg PO BID 08/20/23 08/20/23 Ondansetron Odt [Zofran Odt] 4 mg TL Q6H PRN 08/20/23 08/20/23 Pantoprazole Sodium 40 mg ORAL DAILY 08/20/23 08/20/23 Ropinirole HCl 0.5 mg PO TID 08/20/23 08/20/23 Senna [Senokot] 8.6 mg PO BID 08/20/23 08/20/23 Tamsulosin HCl [Flomax] 0.4 mg PO DAILY 08/20/23 08/20/23 guaiFENesin [Tussin] 100 mg PO Q6H PRN 08/20/23 08/20/23 - Allergies Allergies/Adverse Reactions: Allergies Allergy/AdvReac Type Severity Reaction Status Date / Time atorvastatin [From Lipitor] Allergy Unknown Verified 08/20/23 14:01 donepezil Allergy Unknown Verified 08/20/23 14:01 hydrocodone Allergy Unknown Verified 08/20/23 14:01 testosterone [From Androderm] Allergy Unknown Verified 08/20/23 14:01 - Social History Does the pt smoke?: No Smoking Status: Never smoker Does the pt drink ETOH?: No Does the pt have substance abuse?: No - Immunizations Immunizations are current?: Yes - POLST Patient has POLST: No PD ED PE EXPANDED - General General: Alert, No acute distress, Disheveled, poorly kept - Cardiac Cardiac: Regular Rate, Radial strong equal, Pedal strong equal, Cap refill < 2 sec. No: Murmur Present - Respiratory Respiratory: Rhonchi (generalized rhonchi). No: Distress, Labored - Abdomen Abdomen: Normal Bowel sounds. No: Tender to palpation - Derm Derm: Normal color, Warm and dry. No: Rash - Neuro Neuro: Confused, Weakness (left arm with mild weakness and drift). No: Alert and Oriented X 3 Results - Vitals Vitals: Vital Signs - 24 hr 08/20/23 08/20/23 08/20/23 14:02 14:11 15:22 Temperature 36.4 C L Heart Rate 60 56 L 50 L Respiratory 25 H 14 18 Rate Blood Pressure 129/79 119/69 118/82 H O2 Saturation 100 99 100 08/20/23 08/20/23 15:23 16:38 Temperature 36 C L Heart Rate 70 70 Respiratory 24 22 Rate Blood Pressure 118/82 H 138/80 H O2 Saturation 100 100 Oxygen O2 Source Room air - EKG (time done) 1446 EKG releavant findings:: EKG personally interpreted by author of this note. Relevant findings are: Rate: Rate (enter#) (50) Rhythm: NSR Intervals: LBBB (unchanged) Ischemia: Non specific changes Compare to prior EKG: Unchanged from prior EKG Computer interpretation: Agree with computer - Labs Labs: Laboratory Tests 08/20/23 08/20/23 08/20/23 13:22 14:33 14:33 WBC 7.0 RBC 4.81 Hgb 9.5 L Hct 34.9 L MCV 72.6 L MCH 19.8 L MCHC 27.2 L RDW 21.4 H Plt Count 244 MPV 10.5 Neut # (Auto) 3.6 Lymph # (Auto) 2.3 [place] # (Auto) 0.8 Eos # (Auto) 0.2 Baso # (Auto) 0.1 Absolute Nucleated RBC 0.00 Nucleated RBC % 0.0 Manual Slide Review Indicated Platelet Estimate NORMAL (130-450,000) Platelet Morphology NORMAL APPEARANCE RBC Morph Micro Appear 1+ POLYCHROMASIA PT 13.0 H INR 1.2 Sodium 138 Potassium 4.4 Chloride 107 Carbon Dioxide 25 Anion Gap 6.0 BUN 15 Creatinine 0.9 Estimated GFR (MDRD) 81 L Glucose 84 Calcium 9.3 Total Bilirubin 0.5 AST 14 ALT 3 L Alkaline Phosphatase 70 Total Protein 6.7 Albumin 3.9 Globulin 2.8 Albumin/Globulin Ratio 1.4 Lipase 66 Free T4 Direct 1.04 - Rads (name of study) CT head Relevant Findings:: Final report received ( he just needs desk age-related volume loss and small vessel ischemic change. No acute or cranial process. Mild right maxillary sinusitis. Suggestion of poor dentition with periapical lucency, right upper posterior molar) angio head/neck Relevant Findings:: Final report received (At least moderate right cavernous carotid artery stenotic disease. CTA the head demonstrates no focal filling deficit or occlusion. Right proximal ICA stenosis which is severe. Approximately 70% secondary to a soft plaque. Mild less than 50% proximal left ICA stenosis.) PD Medical Decision Making - ED course Complexity details: reviewed results, re-evaluated patient, d/w patient ED course: 83-year-old male has past medical history Mo significant for hypertension, hyp erlipidemia and dementia who has a POLST indicating DNR/comfort measures presents emergency department for evaluation of left arm weakness. Patient's at the bedside reports that yesterday he was moving his left arm normally. She noted when visiting him at [facility] this morning that he is not moving the left arm well. He is not anticoagulated. On presentation to the emergency department he had an NIHSS of 3 owing for mild left arm and leg weakness. However he was well outside the window for consideration of TNK. CBC, electrolytes and thyroid studies were obtained which per my interpretation note showed no acute worrisome abnormalities. Twelve-lead EKG is interpreted by myself shows a left bundle branch block unchanged in morphology from previous. CT of the head showed no acute bruising or bleeding. He did have some generalized microvascular ischemic disease. Unfortunately angiogram of the head and neck showed severe stenosis of the right cavernous ICA with about 70% stenosis. Also right proximal ICA stenosis and 50% left proximal ICA stenosis. I discussed with the patient and his at the bedside treatment etiologies for what appears to be a completed stroke given the left-sided deficits. We discussed medication management only versus consideration of transfer For IR or carotid endarterectomy for the carotid stenosis.. They understood that he is at a high risk to have a another stroke given the significant stenosis. However as he is a DNR/comfort care measures his felt he would not want to have surgical intervention. Patient has previously been on hospice and she did request a hospice referral again which I have placed. In the interim patient will be placed on aspirin for the next 3 weeks and started on Plavix daily going forward. He was given 325 of aspirin and 300 of Plavix here in the emergency department. Departure - Departure Disposition: 01 Home, Self Care Clinical Impression: Left arm weakness, Carotid artery stenosis with cerebral infarction Stroke Qualifiers: CVA mechanism: unspecified Qualified Code(s): I63.9 - Cerebral infarction, unspecified Follow-Up: Bismark Marin MD [Primary Care Provider] - Prescriptions: Aspirin [Aspirin EC] 81 mg PO DAILY #21 tab Clopidogrel Bisulfate [Plavix] 75 mg PO DAILY #30 tab Comments: Kehinde was seen today in the emergency department because he had developed some left arm weakness overnight. This is a sign of a stroke. The angiograms that we did on the blood vessels in his head and neck show that he has approximately 70% stenosis of the right internal carotid artery and 50% stenosis of the left. It is the right internal carotid artery stenosis and plaque that have likely caused the left arm weakness. Most people that have 1 stroke are at about 30 to 50% risk of having a second stroke within 30 days. In order to try and manage some risk of stroke we [facility] order to do either carotid enterectomy or stenting of the affected arteries. However after thoughtful discussion you have declined transfer and prefer now to simply manage the stroke with medications. He will take aspirin 81 mg a day for the next 3 weeks then stop. He will continue to take Plavix 75 mg daily otherwise. He was given his initial doses of these medications tonight in the ER. Because of the strokes and his history of dementia Kehinde is a candidate for consideration of hospice care. I have placed this referral in the computer. The hospice team should reach out to you in the next 48 hours to help talk about options moving forward. While at [facility] he can continue his other medications that he has previously taken. He should olnly walk with assistance and should not be independent with any ambulation. Return to the ED for any new or worsening symptoms Forms: PCP List NIHSS - Time Time: 14:10 - Level of Consciousness Level of consciousness: (0) Alert, Keenly responsive LOC Questions: (1) Answers one Q correctly LOC Commands: (0) Performs both correctly - Gaze Best Gaze: (0) Normal - Visual Visual: (0) No loss - Facial Palsy Facial Palsy: (0) Normal, symmetrical movement - Motor Arms (both separate) Motor Arm (right): (0) No drift Motor Arm (left): (1) Drift - Motor Legs (both separate) Motor Leg (right): (0) No drift Motor Leg (left): (1) Drift - Limb Ataxia Limb Ataxia: (0) Absent - Sensory Sensory: (0) Normal - Best Language Best Language: (0) No aphasia - Dysarthria Dysarthria: (0) Normal - Extinction and Inattention (formally neg Extinction and inattention: (0) No abnormality - Total Score/Results Total Score/Result: 3
[2023-08-20 14:56] LABS: INR 1.2 (0.8-1.2)
--- NOTE | 2023-08-20 14:58 | XRAY Report ---
PROCEDURE: Chest 1 View X-Ray INDICATIONS: Chest Pain TECHNIQUE: One view of the chest was acquired. COMPARISON: 09/13/2022. FINDINGS: Surgical changes and devices: None. Lungs and pleura: No pleural effusions or pneumothorax. There is pulmonary vascular congestion with cephalization of the pulmonary arteries. Mediastinum: Mediastinal contours appear normal. Heart size is enlarged. Bones and chest wall: No suspicious bony lesions. Overlying soft tissues appear unremarkable. IMPRESSION: Cardiomegaly and pulmonary vascular congestion. Reviewed by: Chris Martinez on 08/20/2023 1:56 PM [facility] Approved by: Chris Martinez on 08/20/2023 1:56 PM [facility] Station ID: [id number]
[2023-08-20 15:07] LABS: ALBUMIN 3.9 g/dL (3.2-5.5); ALBUMIN/GLOBULIN RATIO 1.4 (1.0-2.2); BILIRUBIN,TOTAL 0.5 mg/dL (0.2-1.0); CALCIUM 9.3 mg/dL (8.5-10.3); CREATININE 0.9 mg/dL (0.6-1.3); POTASSIUM 4.4 mmol/L (3.5-4.5); TOTAL PROTEIN 6.7 g/dL (6.4-8.9)
[2023-08-20 15:26] LABS: BASOPHILS # (AUTO) 0.1 10^3/uL (0.0-0.1); EOSINOPHILS # (AUTO) 0.2 10^3/uL (0.0-0.7); EOSINOPHILS % (AUTO) 2.2 %; HCT - HEMATOCRIT 34.9 % (42.0-52.0); HGB - HEMOGLOBIN 9.5 g/dL (14.0-18.0); LYMPHOCYTES # (AUTO) 2.3 10^3/uL (1.5-3.5); LYMPHOCYTES % (AUTO) 33.2 %; MEAN CORPUSCULAR HEMOGLOBIN 19.8 pg (27.0-31.0); MEAN CORPUSCULAR HGB CONC 27.2 g/dL (32.0-36.0); MEAN CORPUSCULAR VOLUME 72.6 fL (80.0-94.0); MEAN PLATELET VOLUME 10.5 fL (7.4-11.4); MONOCYTES # (AUTO) 0.8 10^3/uL (0.0-1.0); MONOCYTES % (AUTO) 11.1 %; NEUTROPHILS # (AUTO) 3.6 10^3/uL (1.5-6.6); NEUTROPHILS % (AUTO) 52.2 %; PLT - PLATELET COUNT 244 10^3/uL (130-450); RED BLOOD COUNT 4.81 10^6/uL (4.70-6.10); RED CELL DISTRIBUTION WIDTH 21.4 % (12.0-15.0)
[2023-08-20] MEDS ORDERED: iohexoL-300 100 ML VIAL IVP ONE (15:50)
[2023-08-20 15:51] LABS: SLIDE REVIEW? Indicated
[2023-08-20 15:52] LABS: PLATELET ESTIMATE, MANUAL NORMAL (130-450,000) (NORMAL); PLATELET MORPHOLOGY NORMAL APPEARANCE (NORMAL)
[2023-08-20] MEDS ORDERED: SODIUM CHLORIDE 0.9% 1,000 ML IV STA (16:17)
--- NOTE | 2023-08-20 16:33 | CT Report ---
PROCEDURE: HEAD WO INDICATIONS: left arm weakness TECHNIQUE: Noncontrast 4.5 mm thick angled axial sections acquired from the foramen magnum to the vertex. For r adiation dose reduction, the following was used: automated exposure control, adjustment of mA and/or kV according to patient size. COMPARISON: 09/13/2022. FINDINGS: Image quality: Excellent. CSF spaces: Basal cisterns are patent. No extra-axial fluid collections. Ventricles are normal in size and shape. Brain: No midline shift. No intracranial masses or hemorrhage. Haque-white matter interface is norm al. Age-related volume loss and unchanged degree of small vessel ischemic change. Intracranial caroti d calcifications and vertebral artery calcifications. Skull and face: Calvarium and visualized facial bones are intact, without suspicious lesions. Periap ical lucency posterior right upper molar. Sinuses: Small air-fluid level, right maxillary sinus. IMPRESSION: 1. Age-related volume loss and small vessel ischemic change. 2. No acute intracranial process. 3. Mild right maxillary sinusitis. 4. Suggestion of poor dentition with periapical lucency, right upper posterior molar. Reviewed by: Jared Jenkins MD on 08/20/2023 4:32 PM PST Approved by: Jared Jenkins MD on 08/20/2023 4:32 PM PST Station ID: [id number]
--- NOTE | 2023-08-20 16:38 | CT Report ---
PROCEDURE: CT Angio Head/Neck INDICATIONS: left arm weakness TECHNIQUE: Pre-contrast 4.5 mm thick sections acquired from the foramen magnum to the vertex. After the adminis tration of intravenous contrast, 1 mm thick sections acquired from the aortic arch through the [place] of [place]. Post-contrast 4.5 mm thick sections then re-acquired from the foramen magnum to the vert ex. 3-dimensional zdjpjfj-cuseyzstu-jepjapexym (MIP) and/or volume rendering reformats were acquired of the central intracranial vasculature and neck separately. For radiation dose reduction, the foll owing was used: automated exposure control, adjustment of mA and/or kV according to patient size. CONTRAST: See chart notes COMPARISON: CT head from the same date immediately prior to the study FINDINGS: Image quality: Excellent. BRAIN: CSF spaces: Ventricles are normal in size and shape. Basal cisterns are patent. No extra-axial flu id collections. Brain: No midline shift. No intracranial bleeds or masses. Haque-white matter interface appears int act. Skull and face: Calvarium and facial bones appear intact, without suspicious lesions. Orbits appear normal. Sinuses: Small air-fluid level, right maxillary sinus. HEAD CT ANGIOGRAPHY: Anterior circulation: There is dense atherosclerotic calcification involving the left cavernous carot id with at least moderate left cavernous carotid stenotic disease. There is mild right cavernous meek tid stenotic disease. The flow within the paired anterior cerebral arteries is normal and symmetric. The flow within the middle cerebral arteries is normal and symmetric. The anterior communicating ar william is seen. No aneurysms are seen. Posterior circulation: Visualized portions of the vertebral arteries demonstrate normal caliber, and join to form a normal appearing basilar artery. Flow within the posterior cerebral arteries is norm al and symmetric. No aneurysms are seen. NECK CT ANGIOGRAPHY: Carotid system: The great vessels demonstrate a conventional anatomy as they arise from the aortic a rch. The origins of the common carotid arteries appear patent. The common carotid arteries demonstr ate normal caliber and courses. The bifurcation regions are both widely patent. There is a severe ri ght proximal internal carotid artery stenosis secondary to soft plaque, in the neighborhood of 70%. T here is a mild, less than 50% proximal left internal carotid artery stenosis. Posterior circulation: The origins of the vertebral arteries both appear widely patent. The more antoine perior extracranial portions of both vertebral arteries also demonstrate normal courses and calibers. They join to form a normal appearing basilar artery. Soft tissues: Visualized neck soft tissues demonstrate no suspicious abnormalities. Bones: No suspicious bony lesions. Visualized cervical spine appears normally aligned. IMPRESSION: 1. There is at least moderate right cavernous carotid artery stenotic disease. CTA head demonstrates no focal filling defect or occlusion. 2. There is a proximal right internal carotid artery stenosis which is severe, in the neighborhood of 70%, secondary to soft plaque. There is mild, less than 50% proximal left internal carotid stenotic disease. The estimate of stenosis included in the report of the imaging study was calculated using the NASCET method Reviewed by: Jared Jenkins MD on 08/20/2023 4:37 PM PST Approved by: Jared Jenkins MD on 08/20/2023 4:37 PM PST Station ID: [id number]
[2023-08-20] MEDS ORDERED: rOPINIRole 1 MG TABLET PO STA (17:31)
[2023-08-20] MEDS ORDERED: ASPIRIN CHEW 81 MG TABLET PO STA (17:31)
[2023-08-20] MEDS ORDERED: CLOPIDOGREL 300 MG TABLET PO STA (17:56)
[2023-08-20 18:02] VITALS: BP 143/88; O2SAT 98
== END 2023-08-20 18:35 | disposition home or self-care (01) ==
LOC: EDUNIT# → ED 13:47
DX: I63.232 Cerebral infarction due to unspecified occlusion or stenosis of left carotid arteries (principal); G83.24 Monoplegia of upper limb affecting left nondominant side; Z66 Do not resuscitate; I11.0 Hypertensive heart disease with heart failure; I50.9 Heart failure, unspecified; E78.00 Pure hypercholesterolemia, unspecified; F03.90 Unspecified dementia, unspecified severity, without behavioral disturbance, psychotic disturbance, mood disturbance, and anxiety; Z79.899 Other long term (current) drug therapy; Z79.82 Long term (current) use of aspirin; Z79.02 Long term (current) use of antithrombotics/antiplatelets
CPT/HCPCS: 36415; 70450; 70496; 70498; 71045; 80053; 83690; 84439; 85025; 85610; 93005; 99284; A9270; Q9967

== ENCOUNTER 2023-08-20 18:36 | Outpatient (CLI) | payer MEDICARE, BC | END 2023-08-20 18:37 | LOC: EMS 18:36 | PROVIDERS: ATTEND Registered Nurse | DX: Z51.5 Encounter for palliative care (principal); R41.0 Disorientation, unspecified; R53.1 Weakness; I65.23 Occlusion and stenosis of bilateral carotid arteries; F03.90 Unspecified dementia, unspecified severity, without behavioral disturbance, psychotic disturbance, mood disturbance, and anxiety | CPT/HCPCS: A0425; A0428 ==

== ENCOUNTER 2024-03-20 15:06 | Outpatient (CLI) | payer MEDICARE, BC ==
--- NOTE | 2024-03-21 03:26 | XRAY Report ---
PROCEDURE: Ribs 2V RT INDICATIONS: RIB FRACTURE TECHNIQUE: 2 views of the ribs were obtained. Images are limited by patient positioning COMPARISON: None FINDINGS: Surgical changes and devices: None. Bones and chest wall: No fractures or dislocations. No suspicious bony lesions. Overlying soft tis sues appear unremarkable. Lungs and pleura: The visualized right lung appears clear. No pleural effusions or pneumothorax are visible. IMPRESSION: Limited evaluation, but no evidence of displaced rib fracture or large pneumothorax. Reviewed by: Rodri Barrow MD on 03/21/2024 2:25 AM [facility] Approved by: Rodri Barrow MD on 03/21/2024 2:25 AM [facility] Station ID: [id number]
== END 2024-03-20 15:07 | disposition home or self-care (01) ==
LOC: DI 15:06
PROVIDERS: ATTEND Family Medicine
DX: Z53.9 Procedure and treatment not carried out, unspecified reason (principal)

== ENCOUNTER 2024-04-28 14:13 | Outpatient (CLI) | payer MEDICARE, BC ==
[2024-04-28 14:57] LABS: BILIRUBIN,URINE NEGATIVE (NEGATIVE); GLUCOSE, URINE (UA) NEGATIVE (NEGATIVE); KETONES,URINE (UA) NEGATIVE (NEGATIVE); LEUKOCYTE ESTERASE, URINE LARGE (NEGATIVE); NITRITE,URINE POSITIVE (NEGATIVE); OCCULT BLOOD,URINE TRACE-INTA (NEGATIVE); PROTEIN,URINE TRACE mg/dL (NEGATIVE); UROBILINOGEN,URINE 0.2 (NORMAL) E.U./dL (NORMAL)
[2024-04-28 15:03] LABS: CLARITY,URINE CLOUDY (CLEAR)
[2024-04-28 16:10] LABS: RBC,URINE 0-5 /HPF (0-5); WBC,URINE >25 /HPF (0-3)
[2024-04-28 16:11] LABS: BACTERIA,URINE Many /HPF (None Seen); SQUAMOUS EPITHELIAL CELL,UR NONE SEEN (<= Few)
== END 2024-04-28 14:14 | disposition home or self-care (01) ==
LOC: LAB.R 14:13
PROVIDERS: ATTEND Family Medicine
DX: R30.0 Dysuria (principal)
CPT/HCPCS: 81001; 81003; 87086